=== PATIENT | female | born 1980 | race Caucasian/White ===

== ENCOUNTER 2021-03-03 18:01 | Observation (INO) ==
[2021-03-03 18:57] LABS: Pregnancy Test, Urine Negative (Negative)
[2021-03-03] MEDS ORDERED: traZODone HCL 50 MG TAB PO ONE ×2 (19:00→22:13)
[2021-03-03 19:03] LABS: Bacteria Urine Automated 1+ (Negative); Bilirubin Urine Negative (Negative); Blood Urine Trace (Negative); Color Urine Yellow; Epithelial Cell Urine Auto >30 /lpf (0-5); Glucose Urine UA Negative (Negative); Ketones Urine Negative (Negative); Leukocyte Esterase Urine 3+ (Negative); Nitrite Urine Negative (Negative); Protein Urine Negative (Negative); RBC Urine Automated 0-4 /hpf (0-4); Specific Gravity Urine 1.007 (1.000-1.030); Urobilinogen Urine Negative (Negative); pH Urine 6.5 (4.5-7.5)
[2021-03-03 19:17] LABS: Amphetamines+Metham, Urine Neg (Neg); Barbiturates, Urine Neg (Neg); Benzodiazepine, Urine Neg (Neg); Cocaine, Urine Neg (Neg); MDMA (Ecstacy), Urine Neg (Neg); Methadone, Urine Neg (Neg); Opiate, Urine Neg (Neg); Phencyclidine, Urine Neg (Neg)
[2021-03-03 19:21] LABS: Basophils # (auto) 0.04 K/uL (0-0.2); Basophils % (auto) 0.3 %; Eosinophils # (auto) 0.07 K/uL (0-0.5); Eosinophils % (auto) 0.5 %; Hematocrit (blood only) 46.3 % (37-47); Hemoglobin 16.4 g/dL (12.0-16.0); Immature Granulocytes # (auto) 0.03 K/uL (0.00-0.02); Immature Granulocytes % (auto) 0.2 %; Lymphocytes # (auto) 3.33 K/uL (1.2-3.4); Mean Corpuscular Hemoglobin 31.9 pg (25-34); Mean Corpuscular Hgb Conc 35.4 g/dL (32-36); Mean Corpuscular Volume 90.1 fL (80-100); Mean Platelet Volume 11.5 fL (7.4-10.4); Monocytes # (auto) 0.97 K/uL (0.11-0.59); Monocytes % (auto) 7.3 %; Neutrophils # (auto) 8.86 K/uL (1.4-6.5); Neutrophils % (auto) 66.7 %; Platelet Count 280 K/uL (130-400); RDW Coefficient of Variation 12.5 % (11.5-14.5); RDW Standard Deviation 41.2 fL (36.4-46.3); Red Blood Count 5.14 M/uL (4.2-5.4)
[2021-03-03 19:23] LABS: Appearance Urine Clear (Clear)
--- NOTE | 2021-03-03 19:32 | Emergency Department Note ---
Impression & Plan Mood disorder, Right upper quadrant abdominal pain, Leukocytosis, UTI (urinary tract infection) ED Provider Note INFORMANT: Patient and daughter ED PROVIDER(S): Kane Hays MD CHIEF COMPLAINT: Mental health evaluation PLAN: Disposition: Admitted Condition: Good Outpatient prescription management: none Referral: None MEDICAL DECISION MAKING: Patient presented for mental evaluation. She had what was described as a manic- like episode after leaving the [facility]. Her time there was reviewed and she was noted to have a significant leukocytosis. Their work-up did not reveal an obvious source for infection. Currently the patient denied any pain. She was dealing with right upper quadrant pain. A ultrasound of the gallbladder was performed and was unremarkable. Patient still has a mild leukocytosis present on her CBC. Her urinalysis was concerning for infection. Remainder of her blood work was unremarkable. The patient, her daughter, and I discussed inpatient treatment. She has a low potassium, high white count, and an abnormal urine. I discussed initiation of antibiotics and treatment for the potassium. In light of her symptoms and findings she will not be directly excepted for mental health evaluation at any facility. Medical admission here can also c onsult with psychiatry. Case management and I discussed the possibility and it was felt to be reasonable. I did discuss the case with Dr. Jose Alejandro Nation, [facility] hospitalist service. Patient was evaluated in ER admitted for further management. Triage Nursing notes reviewed and agree them. Vital Signs: reviewed and remarkable for hypertension Differential diagnosis: Mood disorder, cholecystitis, infection, hypoglycemia, electrolyte abnormal ities, cardiac sources, intracerebral event, toxicologic, trauma, neurologic, as well as other pathologies. Diagnostics interpreted by me: ECG: none Cardiac Monitoring: none Imaging studies: Gallbladder ultrasound negative. HPI: The patient is a 41 year old female who presents to the Emergency Room with complaints of mental health evaluation. The patient recently was held in the [facility] on a 302 because of psychotic-like features. She was also found to have a significant leukocytosis. She had a work-up obtained which did not reveal any obvious problems. CT scan was negative. Urine did not reveal obvious signs of infection. The patient did require restraint and sedation. She was seen by telepsych services. She reportedly improved per family's information that they were given from the hospital and the patient was discharged today. When she went home she was with her daughter and daughter notes that she started to have agitated behavior again. She took off her clothes and ran into the bathroom. She was repeatedly arranging items on the shelf. The patient was evaluated by 911 services however at the time she was calm and cooperative. They did not transport her. Family was concerned and brought her to the ER for evaluation. She was complaining of several weeks of right upper quadrant abdominal pain when she arrived at the [facility]. Currently she denies any pain. Patient did take her morning medications. Jennifer harper is due for an evening trazodone. pt denies LOC, headache, fevers, chills, diaphoresis, visual changes, neck pain, chest pain, breathing difficulties, nausea, vomiting, abdominal pain, back pain, melena, hematochezia, urinary symptoms, numbness, weakness, lymphadenopathy, rash, or other complaints. ROS: See above HPI for pertinent positives & negatives. A total of 10 systems reviewed and were otherwise negative. PAST MEDICAL HISTORY:See Below , anxiety, jeb PAST SURGICAL HISTORY:See Below, FAMILY HISTORY:See Below SOCIAL HISTORY:See Below, former smoker HOME MEDICATIONS:See Below ALLERGIES:See Below VITALS:See Below PHYSICAL EXAMINATION: GENERAL: Awake, alert, mildly agitated-appearing, in no distress HENT: Normocephalic, atraumatic. Oropharynx unremarkable. EYES: Normal conjunctiva. Sclera non-icteric. NECK: Inspection normal. Non-tender. Supple. No nuchal rigidity. FROM. No masses. RESPIRATORY: Clear to auscultation. No wheezes. No rales. Normal respiratory effort. CARDIAC: Normal rate. Normal rhythm. No murmurs. No rubs. Extremities warm and well perfused. Pulses equal. No JVD. GI: Soft, non-distended. No tenderness to palpation. No rebound or guarding. No masses. RECTAL: Deferred. MUSCULOSKELETAL: Atraumatic except for superficial bruises noted on the arms. Chest examination reveals no tenderness. The back is symmetrical on inspection without obvious abnormality. There is no CVA tenderness to palpation. No joint edema. LOWER EXTREMITIES: Calves are equal size bilaterally and non-tender. No edema. No discoloration. NEURO: Normal sensorium. No sensory or motor deficits noted. SKIN: No rash or jaundice noted. PSYCH: No SI or HI. The patient is quick to answer with yes and no answers. Does not provide details. Insight seems impaired. Kane Hays MD Past Med/Surg History Medical History (Updated 03/04/21 @ 02:50 by Kane Hays MD) Chronic migraine Gastritis Pharyngitis Social History Smoking Status: Never smoker Feels Safe at Home: Yes Allergies Allergies Allergy/AdvReac Type Severity Reaction Status Date / Time No Known Allergies Allergy Unverified 10/16/18 12:14 Home Meds Home Medications Medication Instructions Recorded Confirmed lamotrigine 100 mg tablet 100 mg PO QAM 10/16/18 03/03/21 sertraline 100 mg tablet 100 mg PO QAM 10/16/18 03/03/21 propranolol 10 mg tablet 10 mg PO DAILY 03/03/21 03/03/21 trazodone 50 mg tablet 50 mg PO DAILY 03/03/21 03/03/21 Results & Data (ED) Vital Signs Vital Signs - 24 hr 03/03/21 18:20 03/03/21 20:20 03/03/21 21:45 Temperature 36.9 C 36.7 C Temperature Source Temporal Artery Scan Oral Pulse Rate 72 Pulse Rate [Finger] 74 80 Respiratory Rate 19 18 18 Respiratory Effort / Characteristics Non-Labored Spontaneous Respiratory Depth Normal Respiratory Pattern Regular Blood Pressure 189/117 H Blood Pressure [Left Arm] 169/121 H 199/115 H Blood Pressure Mean 141 Blood Pressure Mean [Left Arm] 137 143 Pulse Oximetry 97 98 100 Oxygen Delivery Method Room Air Room Air Sepsis Recent Fever Within 48 Hours No Sepsis New/Unexplained Change in Mental Status N/A Sepsis Action Taken by Nursing No Action Required 03/03/21 22:05 Temperature Temperature Source Pulse Rate Pulse Rate [Finger] 70 Respiratory Rate 19 Respiratory Effort / Characteristics Respiratory Depth Normal Respiratory Pattern Blood Pressure Blood Pressure [Left Arm] 169/103 H Blood Pressure Mean Blood Pressure Mean [Left Arm] 125 Pulse Oximetry 98 Oxygen Delivery Method Sepsis Recent Fever Within 48 Hours Sepsis New/Unexplained Change in Mental Status Sepsis Action Taken by Nursing Laboratory Data Result diagrams: 03/03/21 19:03 03/03/21 19:03 Lab Results 03/03/21 03/03/21 03/03/21 Range/Units 18:37 18:37 18:37 WBC (4.8-10.8) K/uL RBC (4.2-5.4) M/uL Hgb (12.0-16.0) g/dL Hct (37-47) % MCV (80-100) fL MCH (25-34) pg MCHC (32-36) g/dL RDW Std Deviation (36.4-46.3) fL RDW Coeff of Jerry (11.5-14.5) % Plt Count (130-400) K/uL MPV (7.4-10.4) fL Immature Gran % (Auto) % Neut % (Auto) % Lymph % (Auto) % [place] % (Auto) % Eos % (Auto) % Baso % (Auto) % Neut # (Auto) (1.4-6.5) K/uL Lymph # (Auto) (1.2-3.4) K/uL [place] # (Auto) (0.11-0.59) K/uL Eos # (Auto) (0-0.5) K/uL Baso # (Auto) (0-0.2) K/uL Immature Gran # (Auto) (0.00-0.02) K/uL Sodium (136-145) mmol/L Potassium (3.5-5.1) mmol/L Chloride (98-107) mmol/L Carbon Dioxide (21-32) mmol/L Anion Gap (3-11) BUN (7-18) mg/dl Creatinine (0.6-1.2) mg/dl Est Cr Clr Drug Dosing ml/min Est GFR ( Amer) ml/min Est GFR (Non-Af Amer) ml/min BUN/Creatinine Ratio (10-20) Glucose (70-99) mg/dl Calcium (8.5-10.1) mg/dl Magnesium (1.8-2.4) mg/dl Total Bilirubin (0.2-1) mg/dl AST (15-37) U/L ALT (12-78) U/L Alkaline Phosphatase (45-117) U/L Total Creatine Kinase (26-192) U/L Total Protein (6.4-8.2) gm/dl Albumin (3.4-5.0) gm/dl Globulin (2.5-4.0) gm/dl Albumin/Globulin Ratio (0.9-2) TSH (0.300-4.500) uIu/ml Urine Color Yellow Urine Appearance Clear (Clear) Urine pH 6.5 (4.5-7.5) Ur Specific [place] 1.007 (1.000-1.030) Urine Protein Negative (Negative) Urine Glucose (UA) Negative (Negative) Urine Ketones Negative (Negative) Urine Blood Trace H (Negative) Urine Nitrite Negative (Negative) Urine Bilirubin Negative (Negative) Urine Urobilinogen Negative (Negative) Ur Leukocyte Esterase 3+ H (Negative) Urine WBC (Auto) 10-30 H (0-5) /hpf Urine RBC (Auto) 0-4 (0-4) /hpf U Hyaline Cast (Auto) 1-5 (0-5) /lpf U Epithel Cells (Auto) >30 H (0-5) /lpf Urine Bacteria (Auto) 1+ H (Negative) Urine Test Negative (Negative) Salicylates (2.8-20) mg/dl Urine Opiates Screen Neg (Neg) Ur Methadone, Qual Neg (Neg) Acetaminophen (10-30) ug/ml Urine Barbiturates Neg (Neg) Ur Phencyclidine (PCP) Neg (Neg) U Amphetamin/Meth Scrn Neg (Neg) MDMA (Ecstasy) Screen Neg (Neg) U Benzodiazepines Scrn Neg (Neg) Ur Cocaine Metabolite Neg (Neg) U Marijuana (THC) Screen Pos H (Neg) Ethyl Alcohol mg/dL (0-3) mg/dl SARS-CoV-2, RNA, NAAT (NEGATIVE) 03/03/21 03/03/21 03/03/21 Range/Units 19:00 19:03 19:03 WBC 13.30 H (4.8-10.8) K/uL RBC 5.14 (4.2-5.4) M/uL Hgb 16.4 H (12.0-16.0) g/dL Hct 46.3 (37-47) % MCV 90.1 (80-100) fL MCH 31.9 (25-34) pg MCHC 35.4 (32-36) g/dL RDW Std Deviation 41.2 (36.4-46.3) fL RDW Coeff of Jerry 12.5 (11.5-14.5) % Plt Count 280 (130-400) K/uL MPV 11.5 H (7.4-10.4) fL Immature Gran % (Auto) 0.2 % Neut % (Auto) 66.7 % Lymph % (Auto) 25.0 % [place] % (Auto) 7.3 % Eos % (Auto) 0.5 % Baso % (Auto) 0.3 % Neut # (Auto) 8.86 H (1.4-6.5) K/uL Lymph # (Auto) 3.33 (1.2-3.4) K/uL [place] # (Auto) 0.97 H (0.11-0.59) K/uL Eos # (Auto) 0.07 (0-0.5) K/uL Baso # (Auto) 0.04 (0-0.2) K/uL Immature Gran # (Auto) 0.03 H (0.00-0.02) K/uL Sodium 142 (136-145) mmol/L Potassium 3.0 L (3.5-5.1) mmol/L Chloride 109 H (98-107) mmol/L Carbon Dioxide 27 (21-32) mmol/L Anion Gap 6.0 (3-11) BUN 13 (7-18) mg/dl Creatinine 0.79 (0.6-1.2) mg/dl Est Cr Clr Drug Dosing 104.8 ml/min Est GFR ( Amer) 107.8 ml/min Est GFR (Non-Af Amer) 93.0 ml/min BUN/Creatinine Ratio 16.6 (10-20) Glucose 117 H (70-99) mg/dl Calcium 9.8 (8.5-10.1) mg/dl Magnesium (1.8-2.4) mg/dl Total Bilirubin 1.1 H (0.2-1) mg/dl AST 35 (15-37) U/L ALT 49 (12-78) U/L Alkaline Phosphatase 70 (45-117) U/L Total Creatine Kinase (26-192) U/L Total Protein 7.6 (6.4-8.2) gm/dl Albumin 4.2 (3.4-5.0) gm/dl Globulin 3.4 (2.5-4.0) gm/dl Albumin/Globulin Ratio 1.2 (0.9-2) TSH 1.470 (0.300-4.500) uIu/ml Urine Color Urine Appearance (Clear) Urine pH (4.5-7.5) Ur Specific [place] (1.000-1.030) Urine Protein (Negative) Urine Glucose (UA) (Negative) Urine Ketones (Negative) Urine Blood (Negative) Urine Nitrite (Negative) Urine Bilirubin (Negative) Urine Urobilinogen (Negative) Ur Leukocyte Esterase (Negative) Urine WBC (Auto) (0-5) /hpf Urine RBC (Auto) (0-4) /hpf U Hyaline Cast (Auto) (0-5) /lpf U Epithel Cells (Auto) (0-5) /lpf Urine Bacteria (Auto) (Negative) Urine Test (Negative) Salicylates (2.8-20) mg/dl Urine Opiates Screen (Neg) Ur Methadone, Qual (Neg) Acetaminophen (10-30) ug/ml Urine Barbiturates (Neg) Ur Phencyclidine (PCP) (Neg) U Amphetamin/Meth Scrn (Neg) MDMA (Ecstasy) Screen (Neg) U Benzodiazepines Scrn (Neg) Ur Cocaine Metabolite (Neg) U Marijuana (THC) Screen (Neg) Ethyl Alcohol mg/dL (0-3) mg/dl SARS-CoV-2, RNA, NAAT NEGATIVE (NEGATIVE) 03/03/21 03/03/21 03/03/21 Range/Units 19:03 19:03 19:03 WBC (4.8-10.8) K/uL RBC (4.2-5.4) M/uL Hgb (12.0-16.0) g/dL Hct (37-47) % MCV (80-100) fL MCH (25-34) pg MCHC (32-36) g/dL RDW Std Deviation (36.4-46.3) fL RDW Coeff of Jerry (11.5-14.5) % Plt Count (130-400) K/uL MPV (7.4-10.4) fL Immature Gran % (Auto) % Neut % (Auto) % Lymph % (Auto) % [place] % (Auto) % Eos % (Auto) % Baso % (Auto) % Neut # (Auto) (1.4-6.5) K/uL Lymph # (Auto) (1.2-3.4) K/uL [place] # (Auto) (0.11-0.59) K/uL Eos # (Auto) (0-0.5) K/uL Baso # (Auto) (0-0.2) K/uL Immature Gran # (Auto) (0.00-0.02) K/uL Sodium (136-145) mmol/L Potassium (3.5-5.1) mmol/L Chloride (98-107) mmol/L Carbon Dioxide (21-32) mmol/L Anion Gap (3-11) BUN (7-18) mg/dl Creatinine (0.6-1.2) mg/dl Est Cr Clr Drug Dosing ml/min Est GFR ( Amer) ml/min Est GFR (Non-Af Amer) ml/min BUN/Creatinine Ratio (10-20) Glucose (70-99) mg/dl Calcium (8.5-10.1) mg/dl Magnesium 2.3 (1.8-2.4) mg/dl Total Bilirubin (0.2-1) mg/dl AST (15-37) U/L ALT (12-78) U/L Alkaline Phosphatase (45-117) U/L Total Creatine Kinase (26-192) U/L Total Protein (6.4-8.2) gm/dl Albumin (3.4-5.0) gm/dl Globulin (2.5-4.0) gm/dl Albumin/Globulin Ratio (0.9-2) TSH (0.300-4.500) uIu/ml Urine Color Urine Appearance (Clear) Urine pH (4.5-7.5) Ur Specific [place] (1.000-1.030) Urine Protein (Negative) Urine Glucose (UA) (Negative) Urine Ketones (Negative) Urine Blood (Negative) Urine Nitrite (Negative) Urine Bilirubin (Negative) Urine Urobilinogen (Negative) Ur Leukocyte Esterase (Negative) Urine WBC (Auto) (0-5) /hpf Urine RBC (Auto) (0-4) /hpf U Hyaline Cast (Auto) (0-5) /lpf U Epithel Cells (Auto) (0-5) /lpf Urine Bacteria (Auto) (Negative) Urine Test (Negative) Salicylates 2.1 L (2.8-20) mg/dl Urine Opiates Screen (Neg) Ur Methadone, Qual (Neg) Acetaminophen < 2 L (10-30) ug/ml Urine Barbiturates (Neg) Ur Phencyclidine (PCP) (Neg) U Amphetamin/Meth Scrn (Neg) MDMA (Ecstasy) Screen (Neg) U Benzodiazepines Scrn (Neg) Ur Cocaine Metabolite (Neg) U Marijuana (THC) Screen (Neg) Ethyl Alcohol mg/dL < 3.0 (0-3) mg/dl SARS-CoV-2, RNA, NAAT (NEGATIVE) 03/03/21 Range/Units 19:03 WBC (4.8-10.8) K/uL RBC (4.2-5.4) M/uL Hgb (12.0-16.0) g/dL Hct (37-47) % MCV (80-100) fL MCH (25-34) pg MCHC (32-36) g/dL RDW Std Deviation (36.4-46.3) fL RDW Coeff of Jerry (11.5-14.5) % Plt Count (130-400) K/uL MPV (7.4-10.4) fL Immature Gran % (Auto) % Neut % (Auto) % Lymph % (Auto) % [place] % (Auto) % Eos % (Auto) % Baso % (Auto) % Neut # (Auto) (1.4-6.5) K/uL Lymph # (Auto) (1.2-3.4) K/uL [place] # (Auto) (0.11-0.59) K/uL Eos # (Auto) (0-0.5) K/uL Baso # (Auto) (0-0.2) K/uL Immature Gran # (Auto) (0.00-0.02) K/uL Sodium (136-145) mmol/L Potassium (3.5-5.1) mmol/L Chloride (98-107) mmol/L Carbon Dioxide (21-32) mmol/L Anion Gap (3-11) BUN (7-18) mg/dl Creatinine (0.6-1.2) mg/dl Est Cr Clr Drug Dosing ml/min Est GFR ( Amer) ml/min Est GFR (Non-Af Amer) ml/min BUN/Creatinine Ratio (10-20) Glucose (70-99) mg/dl Calcium (8.5-10.1) mg/dl Magnesium (1.8-2.4) mg/dl Total Bilirubin (0.2-1) mg/dl AST (15-37) U/L ALT (12-78) U/L Alkaline Phosphatase (45-117) U/L Total Creatine Kinase 963 H (26-192) U/L Total Protein (6.4-8.2) gm/dl Albumin (3.4-5.0) gm/dl Globulin (2.5-4.0) gm/dl Albumin/Globulin Ratio (0.9-2) TSH (0.300-4.500) uIu/ml Urine Color Urine Appearance (Clear) Urine pH (4.5-7.5) Ur Specific [place] (1.000-1.030) Urine Protein (Negative) Urine Glucose (UA) (Negative) Urine Ketones (Negative) Urine Blood (Negative) Urine Nitrite (Negative) Urine Bilirubin (Negative) Urine Urobilinogen (Negative) Ur Leukocyte Esterase (Negative) Urine WBC (Auto) (0-5) /hpf Urine RBC (Auto) (0-4) /hpf U Hyaline Cast (Auto) (0-5) /lpf U Epithel Cells (Auto) (0-5) /lpf Urine Bacteria (Auto) (Negative) Urine Test (Negative) Salicylates (2.8-20) mg/dl Urine Opiates Screen (Neg) Ur Methadone, Qual (Neg) Acetaminophen (10-30) ug/ml Urine Barbiturates (Neg) Ur Phencyclidine (PCP) (Neg) U Amphetamin/Meth Scrn (Neg) MDMA (Ecstasy) Screen (Neg) U Benzodiazepines Scrn (Neg) Ur Cocaine Metabolite (Neg) U Marijuana (THC) Screen (Neg) Ethyl Alcohol mg/dL (0-3) mg/dl SARS-CoV-2, RNA, NAAT (NEGATIVE) Administered Medications Potassium Chloride 40 meq/ (Lactated Ringer's) 1,020 mls @ 75 mls/hr IV .[id number] ONE Stop: 03/04/21 12:35 Last Admin: 03/03/21 23:29 Dose: Not Given Documented by: [id number] Discontinued Medications Ceftriaxone Sodium (Rocephin) 2,000 mg in 70 mls @ 140 mls/hr IV NOW STA Stop: 03/03/21 20:38 Last Infusion: 03/03/21 20:47 Dose: 0 mls/hr Documented by: [id number] Admin: 03/03/21 20:17 Dose: 140 mls/hr Documented by: [id number] Labetalol HCl (Labetalol Hcl Iv 5 Mg/Ml 20ml) 10 mg IV NOW STA Stop: 03/03/21 21:47 Last Admin: 03/03/21 22:04 Dose: Not Given Documented by: [id number] Labetalol HCl (Labetalol Hcl Iv 5 Mg/Ml 20ml) Confirm Administered Dose 10 mg IV .STK-MED ONE Stop: 03/03/21 21:50 Last Admin: 03/03/21 21:52 Dose: 10 mg Documented by: [id number] Cosigned by: [id number] Lisinopril (Lisinopril 5 Mg Tab) 5 mg PO NOW ONE Stop: 03/03/21 22:14 Last Admin: 03/03/21 23:11 Dose: Not Given Documented by: [id number] Metoprolol Tartrate (Metoprolol Tartrate 1 Mg/Ml Vial) 2.5 mg IV NOW STA Stop: 03/03/21 20:55 Last Admin: 03/03/21 21:34 Dose: Not Given Documented by: [id number] Potassium Chloride (Potassium Chloride Crtab 20 Meq Tabcr) 40 meq PO NOW STA Stop: 03/03/21 20:10 Last Admin: 03/03/21 20:17 Dose: 40 meq Documented by: [id number] Potassium Chloride (Potassium Chloride Crtab 20 Meq Tabcr) 40 meq PO NOW STA Stop: 03/03/21 20:55 Last Admin: 03/03/21 21:33 Dose: 40 meq Documented by: [id number] Trazodone HCl (Trazodone Hcl 50 Mg Tab) 50 mg PO NOW ONE Stop: 03/03/21 19:01 Last Admin: 03/03/21 19:29 Dose: Not Given Documented by: [id number] Trazodone HCl (Trazodone Hcl 50 Mg Tab) 50 mg PO NOW ONE Stop: 03/03/21 22:14 Last Admin: 03/03/21 22:10 Dose: 50 mg Documented by: [id number] Imaging Data Radiologist's Impression: Gallbladder Ultrasound 03/03/21 18:58 US gallbladder CLINICAL HISTORY: RUQ pain, AMS, recent high WBC COMPARISON STUDY: No previous studies for comparison. FINDINGS: Liver is sonographically normal. There is no biliary ductal dilatation. The common bile duct measures 5 mm in caliber. The pancreatic body is normal. Head and tail are partially obscured. The gallbladder is unremarkable. There are no gallstones. There is no gallbladder wall thickening. There is no right hydronephrosis. IMPRESSION: 1. No abnormality within the right upper quadrant by sonography. 2. Partially obscured pancreas. ACT 112: Negative or not required by law. Electronically signed by: Gio Menchaca M.D. 03/03/2021 7:37 PM Discharge Plan Visit Data Chief Complaint: Mental Health Evaluation Stated Complaint: E ED Provider: Kane Hays Discharge Problem: Mood disorder, Right upper quadrant abdominal pain, Leukocytosis, UTI (urinary tract infection) Patient Disposition: Admitted As Inpatient Discharge Instructions Interventions: ED Discharge Assessment Last Done: 03/03/21 23:31
--- NOTE | 2021-03-03 19:38 | Ultrasound Report ---
US gallbladder CLINICAL HISTORY: RUQ pain, AMS, recent high WBC COMPARISON STUDY: No previous studies for comparison. FINDINGS: Liver is sonographically normal. There is no biliary ductal dilatation. The common bile edgar t measures 5 mm in caliber. The pancreatic body is normal. Head and tail are partially obscured. The gallbladder is unremarkable. There are no gallstones. There is no gallbladder wall thickening. There is no right hydronephrosis. IMPRESSION: 1. No abnormality within the right upper quadrant by sonography. 2. Partially obscured pancreas. ACT 112: Negative or not required by law. Electronically signed by: Gio Menchaca M.D. 03/03/2021 7:37 PM
[2021-03-03 19:41] LABS: Albumin Level 4.2 gm/dl (3.4-5.0); BUN Creatinine Ratio 16.6 (10-20); Calcium 9.8 mg/dl (8.5-10.1); Creatinine Clr Calc Pharmacy 104.8 ml/min; Est GFR (African American) 107.8 ml/min
[2021-03-03 19:46] LABS: Acetaminophen < 2 ug/ml (10-30); Salicylate 2.1 mg/dl (2.8-20)
[2021-03-03 19:52] LABS: Albumin Globulin Ratio 1.2 (0.9-2); Bilirubin,Total 1.1 mg/dl (0.2-1); Globulin 3.4 gm/dl (2.5-4.0); Thyroid Stimulating Hormone 1.47 uIu/ml (0.300-4.500); Total Protein 7.6 gm/dl (6.4-8.2)
[2021-03-03] MEDS ORDERED: cefTRIAXone SODIUM 2,000 MG/70 ML BAG IV STA (20:09)
[2021-03-03] MEDS ORDERED: POTASSIUM CHLORIDE CRTAB 20 MEQ TABCR PO STA ×2 (20:09→20:54)
[2021-03-03] MEDS ORDERED: METOPROLOL TARTRATE 1 MG/ML VIAL IV STA (20:54)
[2021-03-03] MEDS ORDERED: LABETALOL HCL IV 5 MG/ML 20ML IV STA (21:46)
[2021-03-03] MEDS ORDERED: LABETALOL HCL IV 5 MG/ML 20ML IV ONE (21:49)
--- NOTE | 2021-03-03 22:00 | History & Physical Report ---
Date of Service March 03, 2021 Assessment & Plan (1) Asymptomatic hypertensive urgency: Plan: BP elevated in the past as per patient. No prior documentation of hypertension diagnosis. Home propranolol for migraine prophylaxis. Rhabdomyolysis Hypokalemia Asymptomatic pyuria, contaminated specimen, no sepsis Urine CS obtained from [facility] ER no growth Mood disorder with psychotic episodes Hyperglycemia rule out DM Past tobacco/alcohol abuse Med telemetry Initiate lisinopril Monitor CPK response to IVF Replace potassium Follow urine CS, hold off on antibiotics for now Zyprexa as needed agitation, hold sertraline and Lamictal as per [facility] psychiatry recommendations for now. Psych consult Re: Mood disorder with psychotic episodes Check hemoglobin A1c DVT prophylaxis. Lovenox subcu Full code Patient daughter requesting updates from providers. Ms. Dana Snowden, contact #[phone]. Text document was generated using [employer] recognition software. It may contain grammatical or spelling errors. Kindly contact undersigned for clarification of any documentation item in question. History of Present Illness Chief Complaint: Wanted to get checked out as per patient Manic episode as per daughter Primary Care Provider: Dr. Petty History obtained from patient, family, and records. Patient is a fair historian. Medical history significant for anxiety/mood disorder, fibromyalgia, migraine, past tobacco/alcohol abuse. Patient observed at [facility] ER from February 27 to March 03, 2021 for agitation/paranoia/restorationism hallucinations, abdominal pain without urinary symptoms. History of Ritalin Rx which patient stopped days prior to [facility] ER consultation secondary to overstimulation. Abdominal imaging negative. Initial CPK noted to be elevated 1152. UA WBC esterase, nitrite positive. Urine CS no significant growth. No antibiotics given during ER stay. Psychiatry recommended inpatient psych admission once with medical clearance for abdominal pain complaints on initial evaluation at the [facility] ER last February 27. 302 petition by patient's mother was to be upheld. Patient not suicidal as per note. Psychiatry recommended holding off on patient's Zoloft given manic-like symptoms and patient's Lamictal given questionable compliance with medication. Zyprexa 5 mg p.o. at bedtime recommended. Patient found to be calm, coherent and to have good behavior control on follow- up Psychiatry eval at [facility] ER this a.m in contrast to acute psychosis from few days ago as per documentation. Patient felt to be safe for discharge. 302 canceled. Patient instructed to follow-up with her psychiatry provider. Patient found to be agitated and manic again as per daughter upon return home. Patient denies family accounts of her behavior. No chest pain, no shortness of breath, no headache, no abdominal pain, no dysuria. Appetite okay. Patient denies suicidality. Patient given ceftriaxone at the ER for possible UTI. Medical History as above Surgical History : None Family History : Hypertension Personal/Social history : Past tobacco/alcohol abuse, marketing analyst Allergies Allergy/AdvReac Type Severity Reaction Status Date / Time No Known Allergies Allergy Unverified 10/16/18 12:14 Home Medications Medication Instructions Recorded Confirmed Type lamotrigine 100 mg tablet 100 mg PO QAM 10/16/18 03/03/21 History sertraline 100 mg tablet 100 mg PO QAM 10/16/18 03/03/21 History propranolol 10 mg tablet 10 mg PO DAILY 03/03/21 03/03/21 History trazodone 50 mg tablet 50 mg PO DAILY 03/03/21 03/03/21 History Past Med/Surg History Medical History (Updated 03/04/21 @ 11:24 by Elza Norman MD) Chronic migraine Gastritis Pharyngitis Social History Smoking Status: Never smoker Feels Safe at Home: Yes Review of Systems Review of Systems: As per HPI, all 10 systems reviewed, all other ROS negative Physical Exam Physical Exam: GENERAL: Paranoid but coherent, obese, no respiratory distress SKIN: Normal color, warm HEENT: [place] palpebral conjunctivae, no ptosis, dry buccal mucosa NECK : Supple, no tenderness CHEST : CTA, no tenderness HEART : RRR, no obvious murmurs ABDOMEN: no distention, nontender EXTREMITIES : No LE swelling/tenderness, no other conspicuous deformities noted NEUROLOGIC : Coherent, no facial asymmetry, no other gross focality Results & Data Results & Data ([facility]) Vital Signs (Past 12 Hours) Vital Signs Temp Pulse Pulse Resp BP BP Pulse Ox 03/03/21 21:45 80 18 199/115 H 100 03/03/21 20:20 36.7 C 74 18 169/121 H 98 03/03/21 18:20 36.9 C 72 19 189/117 H 97 Laboratory Results Laboratory Results WBC 13.30 K/uL (4.8-10.8) H 03/03/21 19:03 RBC 5.14 M/uL (4.2-5.4) 03/03/21 19:03 Hgb 16.4 g/dL (12.0-16.0) H 03/03/21 19:03 Hct 46.3 % (37-47) 03/03/21 19:03 MCV 90.1 fL (80-100) 03/03/21 19:03 MCH 31.9 pg (25-34) 03/03/21 19:03 MCHC 35.4 g/dL (32-36) 03/03/21 19:03 RDW Std Deviation 41.2 fL (36.4-46.3) 03/03/21 19:03 RDW Coeff of Jerry 12.5 % (11.5-14.5) 03/03/21 19:03 Plt Count 280 K/uL (130-400) 03/03/21 19:03 MPV 11.5 fL (7.4-10.4) H 03/03/21 19:03 Immature Gran % (Auto) 0.2 % 03/03/21 19:03 Neut % (Auto) 66.7 % 03/03/21 19:03 Lymph % (Auto) 25.0 % 03/03/21 19:03 [place] % (Auto) 7.3 % 03/03/21 19:03 Eos % (Auto) 0.5 % 03/03/21 19:03 Baso % (Auto) 0.3 % 03/03/21 19:03 Neut # (Auto) 8.86 K/uL (1.4-6.5) H 03/03/21 19:03 Lymph # (Auto) 3.33 K/uL (1.2-3.4) 03/03/21 19:03 [place] # (Auto) 0.97 K/uL (0.11-0.59) H 03/03/21 19:03 Eos # (Auto) 0.07 K/uL (0-0.5) 03/03/21 19:03 Baso # (Auto) 0.04 K/uL (0-0.2) 03/03/21 19:03 Immature Gran # (Auto) 0.03 K/uL (0.00-0.02) H 03/03/21 19:03 Sodium 142 mmol/L (136-145) 03/03/21 19:03 Potassium 3.0 mmol/L (3.5-5.1) L 03/03/21 19:03 Chloride 109 mmol/L (98-107) H 03/03/21 19:03 Carbon Dioxide 27 mmol/L (21-32) 03/03/21 19:03 Anion Gap 6.0 (3-11) 03/03/21 19:03 BUN 13 mg/dl (7-18) 03/03/21 19:03 Creatinine 0.79 mg/dl (0.6-1.2) 03/03/21 19:03 Est Cr Clr Drug Dosing 104.8 ml/min 03/03/21 19:03 Est GFR ( Amer) 107.8 ml/min 03/03/21 19:03 Est GFR (Non-Af Amer) 93.0 ml/min 03/03/21 19:03 BUN/Creatinine Ratio 16.6 (10-20) 03/03/21 19:03 Glucose 117 mg/dl (70-99) H 03/03/21 19:03 Calcium 9.8 mg/dl (8.5-10.1) 03/03/21 19:03 Magnesium 2.3 mg/dl (1.8-2.4) 03/03/21 19:03 Total Bilirubin 1.1 mg/dl (0.2-1) H 03/03/21 19:03 AST 35 U/L (15-37) 03/03/21 19:03 ALT 49 U/L (12-78) 03/03/21 19:03 Alkaline Phosphatase 70 U/L (45-117) 03/03/21 19:03 Total Creatine Kinase 963 U/L (26-192) H 03/03/21 19:03 Total Protein 7.6 gm/dl (6.4-8.2) 03/03/21 19:03 Albumin 4.2 gm/dl (3.4-5.0) 03/03/21 19:03 Globulin 3.4 gm/dl (2.5-4.0) 03/03/21 19:03 Albumin/Globulin Ratio 1.2 (0.9-2) 03/03/21 19:03 TSH 1.470 uIu/ml (0.300-4.500) 03/03/21 19:03 Urine Color Yellow 03/03/21 18:37 Urine Appearance Clear (Clear) 03/03/21 18:37 Urine pH 6.5 (4.5-7.5) 03/03/21 18:37 Ur Specific [place] 1.007 (1.000-1.030) 03/03/21 18:37 Urine Protein Negative (Negative) 03/03/21 18:37 Urine Glucose (UA) Negative (Negative) 03/03/21 18:37 Urine Ketones Negative (Negative) 03/03/21 18:37 Urine Blood Trace (Negative) H 03/03/21 18:37 Urine Nitrite Negative (Negative) 03/03/21 18:37 Urine Bilirubin Negative (Negative) 03/03/21 18:37 Urine Urobilinogen Negative (Negative) 03/03/21 18:37 Ur Leukocyte Esterase 3+ (Negative) H 03/03/21 18:37 Urine WBC (Auto) 10-30 /hpf (0-5) H 03/03/21 18:37 Urine RBC (Auto) 0-4 /hpf (0-4) 03/03/21 18:37 U Hyaline Cast (Auto) 1-5 /lpf (0-5) 03/03/21 18:37 U Epithel Cells (Auto) >30 /lpf (0-5) H 03/03/21 18:37 Urine Bacteria (Auto) 1+ (Negative) H 03/03/21 18:37 Urine Test Negative (Negative) 03/03/21 18:37 Salicylates 2.1 mg/dl (2.8-20) L 03/03/21 19:03 Urine Opiates Screen Neg (Neg) 03/03/21 18:37 Ur Methadone, Qual Neg (Neg) 03/03/21 18:37 Acetaminophen < 2 ug/ml (10-30) L 03/03/21 19:03 Urine Barbiturates Neg (Neg) 03/03/21 18:37 Ur Phencyclidine (PCP) Neg (Neg) 03/03/21 18:37 U Amphetamin/Meth Scrn Neg (Neg) 03/03/21 18:37 MDMA (Ecstasy) Screen Neg (Neg) 03/03/21 18:37 U Benzodiazepines Scrn Neg (Neg) 03/03/21 18:37 Ur Cocaine Metabolite Neg (Neg) 03/03/21 18:37 U Marijuana (THC) Screen Pos (Neg) H 03/03/21 18:37 Ethyl Alcohol mg/dL < 3.0 mg/dl (0-3) 03/03/21 19:03 SARS-CoV-2, RNA, NAAT NEGATIVE (NEGATIVE) 03/03/21 19:00 Impressions Gallbladder Ultrasound 03/03/21 18:58 US gallbladder CLINICAL HISTORY: RUQ pain, AMS, recent high WBC COMPARISON STUDY: No previous studies for comparison. FINDINGS: Liver is sonographically normal. There is no biliary ductal dilatatio n. The common bile duct measures 5 mm in caliber. The pancreatic body is normal. Head and tail are partially obscured. The gallbladder is unremarkable. There are no gallstones. There is no gallbladder wall thickening. There is no right hydronephrosis. IMPRESSION: 1. No abnormality within the right upper quadrant by sonography. 2. Partially obscured pancreas. ACT 112: Negative or not required by law. Electronically signed by: Gio Menchaca M.D. 03/03/2021 7:37 PM
[2021-03-03] MEDS ORDERED: lisinopril 5 MG TAB PO ONE (22:13)
[2021-03-03] MEDS ORDERED: POTASSIUM CHLORIDE 40 MEQ in LACTATED RINGER'S 1,000 ML IV ONE (23:00)
[2021-03-04] MEDS ORDERED: OLANZapine 10 MG/2.1 ML SDV IM PRN (01:32)
[2021-03-04] MEDS ORDERED: ACETAMINOPHEN 325 MG TAB PO PRN (01:32)
[2021-03-04] MEDS ORDERED: PROMETHAZINE HCL 12.5 MG in SODIUM CHLORIDE 0.9% 50 ML IV PRN (01:32)
[2021-03-04 06:12] LABS: Basophils # (auto) 0.02 K/uL (0-0.2); Basophils % (auto) 0.2 %; Eosinophils % (auto) 0.8 %; Hematocrit (blood only) 42.9 % (37-47); Hemoglobin 14.8 g/dL (12.0-16.0); Immature Granulocytes # (auto) 0.02 K/uL (0.00-0.02); Immature Granulocytes % (auto) 0.2 %; Lymphocytes # (auto) 3.67 K/uL (1.2-3.4); Lymphocytes % (auto) 30.7 %; Mean Corpuscular Hemoglobin 31.4 pg (25-34); Mean Corpuscular Hgb Conc 34.5 g/dL (32-36); Mean Corpuscular Volume 90.9 fL (80-100); Mean Platelet Volume 11.5 fL (7.4-10.4); Monocytes # (auto) 0.96 K/uL (0.11-0.59); Neutrophils # (auto) 7.19 K/uL (1.4-6.5); Neutrophils % (auto) 60.1 %; Platelet Count 247 K/uL (130-400); RDW Coefficient of Variation 12.5 % (11.5-14.5); RDW Standard Deviation 41.8 fL (36.4-46.3); Red Blood Count 4.72 M/uL (4.2-5.4); White Blood Count 11.96 K/uL (4.8-10.8)
[2021-03-04 07:18] LABS: BUN Creatinine Ratio 22.1 (10-20); Calcium 9.4 mg/dl (8.5-10.1); Creatinine Clr Calc Pharmacy 129.3 ml/min; Est GFR (African American) 128.5 ml/min; Est GFR (Non-African American) 110.8 ml/min; Potassium 3.6 mmol/L (3.5-5.1)
--- NOTE | 2021-03-04 07:23 | XRay Report ---
XR chest 1V portable HISTORY: Hypertensive urgency. COMPARISON: None. FINDINGS: The lungs are clear. Cardiac silhouette is normal in size. No pleural effusions. No pneumot horax. IMPRESSION: No acute process. ACT 112: Negative or not required by law. Electronically signed by: Kilo Mckeon M.D. 03/04/2021 7:21 AM
[2021-03-04 07:43] LABS: Estimated Average Glucose 105 mg/dl; Hemoglobin A1C 5.3 % (4.5-5.6)
[2021-03-04] MEDS: PROPRANOLOL HCL 10 MG TAB PO SCH (08:35)
[2021-03-04] MEDS: ENOXAPARIN INJ 40 MG/0.4 ML SYR SQ SCH (08:35)
[2021-03-04] MEDS ORDERED: lisinopril 5 MG TAB PO SCH (09:00)
[2021-03-04] MEDS ORDERED: lamoTRIgine 100 MG TAB PO SCH (09:00)
[2021-03-04] MEDS ORDERED: SERTRALINE HCL 100 MG TABLET PO SCH (09:00)
[2021-03-04] MEDS ORDERED: cloNIDine HCL 0.1 MG TAB PO ONE (11:18)
--- NOTE | 2021-03-04 11:24 | Psychiatric Consultation ---
Date of Consultation March 04, 2021 Impression / Recommendations Impression The patient is a 41 year old woman with a history of BPAD who was recently boarding on a 302 status for acute jeb and after discharge from a local ED continued to exhibit bizarre behaviors, psychomotor activation, mood lability, aggression, poor sleep and paranoia consistent with acute episode of jeb. Given lab abnormalities and severe HTN hyperactive delirium is on the differential but very unlikely given her age, fully oriented, and known history of BPAD. Rather suspect acute jeb lead to decreased po intake, poor sleep and reduced attention to ADLs leading to medical sequelae. 302 petition was done by patient's daughter and agree that at this time she should not be allowed to leave the hospital, and once medically cleared may require inpatient psychiatric treatment, given lack of self care and risk of harm to others given recent poor self-care and aggression from acute jeb. Holding zoloft given that she has no current mood stabilizer and it will take some time to re-titrate lamictal. She voices understanding and consent with this. Also discussed mood stabilizer options and she likes lamictal and is not interested in anything else so will restart titration (unfortunately lamictal is not helpful for acute jeb but can help provide mood stabilization once this is treated and help reduce risk of subsequent depressive episode). Will restart olanzapine for management of acute jeb. She consents to this discussed risks including but not limited to TD, metabolic, sedation. (1) Bipolar 1 disorder with moderate jeb: -olanzapine 2.5 mg qAM & 10 mg qHS -restart lamictal 25 mg qd tomorrow -holding zoloft -for behavioral emergency: olanzapine 10 mg IM x1 -agree with optimizing treatment of medical conditions -once on medical floor consider 1-on-1 given potential for agitation/elopement -patient may not leave AMA or without psych clearance (302 petition from daughter) -psych will continue to follow Risk Factors Assessment Do You Have Access To A Gun?: No Mental Health Diagnoses: Yes Previous Attempt: No Hopelessness: No Protective Factors Assessment Stable Relationships: Yes Supportive Family: Yes Good Rapport with Provider: Yes Psych History Identifying Data Radha Snowden is a 41 yo woman with a history of BPAD who presented to the ED via EMS after bizarre behaviors and then with concern for UTI, possible rhabdomyolysis, hypokalemia and severe HTN. Psychiatry was consulted for management recommendations given history of jeb. Chief Complaint "I'm fine". History of Present Illness Radha is 41 yo woman with a history of BPAD, on maintenance lamictal and zoloft, with recent behavioral health ED hold on 302 warrant at [facility] for suspected jeb from 02/27-03/03. When the warrant she was demonstrating some clinical improvement as they held her lamictal and zoloft and started olanzapine 5 mg qhs. However, after discharge she returned home and was demonstrated bizarre behavior (stripping off her clothes in front of her son-in-law) and increase in psychomotor activation (pulling items off of shelves and hyperfocus on moving around items) and then became aggressive toward her daughter at which point EMS was called and she presented to the ED. Here she was found to have multiple lab abnormalities, severe HTN and concern for possible rhabdomyolysis necessitating medical admission. Currently she presents with normal rate and volume of speech but is guarded offering brief, terse responses to my questions. She endorses history of BPAD with past episodes of jeb. Has been stable on lamictal 100 mg qd and zoloft 100 mg qd for many years. She reports that when she goes into episodes of jeb with little sleep she manages them with "yoga and meditation". One prior psych hospitalization many years ago. She denies SI and HI. She denies Ah and VH but appears to be responding to internal stimuli and appears paranoid-scanning the room and looking intensely in the corners at times. Distracted. She agrees with plan to hold zoloft, restart lamictal titration and start olanzapine BID. She reports poor sleep prior to [facility] ED visit but reports stable sleep and appetite now. Denies any pain. Notably she ripped out her IV this morning and intermittently has been refusing medical workup such as blood draws. This morning allowed blood draw and took her medications. Further collateral from psych liason nurse from her note on 03/04/21 including collateral from patient's daughter as described briefly in history above: "Met with patient for initial assessment. Patient was cooperative and fairly pleasant. She appeared to be distracted and had occasional difficulty answering questions. She only spoke when spoken too and did not offer additional information aside from short responses. She verbalized that she has a history of bipolar disorder with jeb as well as depression and anxiety. Currently denies any symptoms of depression or anxiety. When asked what brought her to the ED she shrugged her shoulders and did not provide an answer. She has had decreased sleep over the past few weeks and "eats when I'm hungry". She reported a 50lb weight loss over the past three months. The patient is seen at [facility] for psychiatry as well as therapy. For therapy she sees BARBARA Franklin. She had a slight edge to her during the interaction but maintained behavioral control. Patient said she is willing for inpatient psychiatric treatment if indicated by the provider. She did not provide much information to this RN. Patient did sign ROIs for her daughter and [facility]." "Spoke with daughter, Hafsa, for collateral. Per daughter, 3-[address] Simpson prescribed patient Adderall and then changed it to Ritalin. The patient has been exhibiting manic behaviors since then that have been increasing in severity. The patient has had frequent mood swings as well as irritability and aggression towards her family members. She has been very preoccupied with her persecutory delusions. She has recently been convinced that a sniper would shoot her if she were to go outside and that her family is trying to kill her. The patient has also been experiencing spiritual delusions. She believes she is psychic and can read other people's minds. The patient has also been telling her family that she is the reincarnation of her grandmother. Recently the patient was awake during the middle of the night and drove herself to [facility] to "fight the devil". She has also believed that she was abducted by aliens. This past Sunday her behaviors began to worsen further. By this point in time she was staying with family because they wanted to monitor her behaviors. She has not been sleeping for the past two weeks due to worry she would in her sleep. She has not been eating either. Patient told daughter that she doesn't want to eat and the only things the patient would eat is baby cereal, jello, and yogurt. On Sunday the patient went to [place] ED after her family asked her to get help with her mental health. While in the ED she attempted to elope so she was placed on a 302 of which her mother was the petitioner. She was in the ED for 3 days due to no bed placement. During this time she was chemically and physically restrained at least 2 times. Family felt her condition was the same but patient was discharged AM. Her daughter picked her up from ED and when the patient entered the car she stated "I know you were all trying to kill me and it didn't work". When the patient arrived to daughter's house she was acting bizarrely. She was referring to herself as "she" and would make statements such as "she is not here anymore". Patient began smacking her dog and became increasingly aggressive throughout the day. Patient was responding to internal stimuli by yelling at unseen people to "get away". Patient stripped her clothes in front of family including daughter, her daughter's , and sister. Patient then went into the bathroom and began organizing bathroom toiletries repeatedly. The police were then called to the home and first dyer arrived. Ultimately the patient's family decided to bring the patient to this ED so she would not be transported to [place] again via first dyer. The patient's daughter and family are very concerned for the patient's wellbeing. They are worried for her safety is she were to be discharged. Per her daughter, the patient is "extremely good at manipulating healthcare staff". Daughter reported that the patient will often lie to health care workers to get what she wants. She said the patient has never attempted to hurt herself. She has a history of bipolar with jeb, depression, and anxiety. In the past , the patient has experienced some events that she considers to be traumatic. Hafsa reported that the patient did not have a good relationship with her father and would have frequent family discord due to the father's cheating. The patient also feels her sister was the favorite child and has trouble processing these feelings. Patient's and she got due to patient's mental health issues when daughter was 12 years old. Ex- is involved and supportive of patient despite this. Patient is typically very private about her mental health treatment. Hafsa verbalized that they have a strong family history of bipolar disorder and anxiety disorders. Patient's grandmother had bipolar disorder and often had manic episodes with frequent inpatient admissions. Some other family members are diagnosed with bipolar disorder. 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 Hafsa doesn't know much detail about the patient's job duties because the patient says she is not allowed to elaborate. The patient has always held jobs and has a master's in adult education through [employer]." Past Psychiatric History Previous Psych History: see [facility] Outpatient Services: psychiatrist and therapist Previous Psych Admissions: 1 prior but she cannot give specific date Do You Have Access To A Gun?: No History of Previous Suicide Attempt: No Past Medication Trials: recently on ritalin and then Adderall which may have set off current episode of jeb Allergies Allergy/AdvReac Type Severity Reaction Status Date / Time No Known Allergies Allergy Unverified 10/16/18 12:14 Home Medications Medication Instructions Recorded Confirmed Type lamotrigine 100 mg tablet 100 mg PO QAM 10/16/18 03/03/21 History sertraline 100 mg tablet 100 mg PO QAM 10/16/18 03/03/21 History propranolol 10 mg tablet 10 mg PO DAILY 03/03/21 03/03/21 History trazodone 50 mg tablet 50 mg PO DAILY 03/03/21 03/03/21 History Family History BPAD in maternal grandmother Substance Abuse History unknown, she denies Personal History 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 Patient History Medical History (Updated 03/04/21 @ 11:24 by Elza Norman MD) Chronic migraine Gastritis Pharyngitis Social History Smoking Status: Never smoker Feels Safe at Home: Yes Physical Exam Psychiatric: Orientation: alert, oriented x 3 and + guarded Apperance: appropriately dressed and appropriately groomed Eye Contact: + poor eye contact Motor Behavior: + psychomotor agitation Speech: normal rate/rhythm/volume of speech (brief, sparse) Affect: + irritable affect Mood: + irritable mood; no depressed mood and no anxious mood Thought Process: + thought blocking Thought Content: reality based without delusions Suicidal Thoughts: denies suicidal thoughts Homicidal Thoughts: denies homicidal thoughts Hallucinations: no auditory hallucinations (she denies but appears to be actively responding) and no visual hallucinations Cognition: recent memory grossly intact, remote memory grossly intact and language grossly intact; + attention not intact Insight: + impaired insight Judgement: + impaired judgement Vital Signs (Past 24 Hours): Last Vital Signs Temp 36.7 C 03/03/21 20:20 Pulse 65 03/04/21 10:36 Resp 18 03/04/21 10:36 BP 209/134 H 03/04/21 10:36 Pulse Ox 98 03/04/21 10:36 Review of Systems All systems reviewed & are unremarkable except as noted in HPI & below Results & Data (PSY) Medications Administered Enoxaparin Sodium (Enoxaparin Inj 40 Mg/0.4 Ml Syr) 40 mg SQ QAM [facility] Stop: 04/03/21 08:59 Last Admin: 03/04/21 08:35 Dose: 40 mg Documented by: [id number] Potassium Chloride 40 meq/ (Lactated Ringer's) 1,020 mls @ 75 mls/hr IV .[id number] [facility] Stop: 03/04/21 12:35 Last Admin: 03/03/21 23:29 Dose: Not Given Documented by: [id number] Lisinopril (Lisinopril 5 Mg Tab) 5 mg PO QAM [facility] Stop: 04/03/21 08:59 Last Admin: 03/04/21 08:35 Dose: 5 mg Documented by: [id number] Propranolol HCl (Propranolol Hcl 10 Mg Tab) 10 mg PO DAILY [facility] Stop: 04/03/21 08:59 Last Admin: 03/04/21 08:35 Dose: 10 mg Documented by: [id number] Coding Level of Care Code 29490 Inpt Consult Level 3 Diagnoses Bipolar 1 disorder with moderate jeb F31.12
[2021-03-04] MEDS ORDERED: traZODone HCL 50 MG TAB PO PRN (11:26)
[2021-03-04] MEDS: OLANZAPINE 2.5 MG TAB PO SCH (12:24)
[2021-03-04] MEDS ORDERED: hydrALAZINE HCL 20 MG/ML VIAL IV STA (12:31)
--- NOTE | 2021-03-04 14:31 | Hospitalist Progress Note ---
Date of Service March 04, 2021 Assessment & Plan (1) Asymptomatic hypertensive urgency: Plan: Labetalol given IV overnight. Lisinopril initiated at low dose. BP this am is 200 systolic. Lost PIV so gave one dose clonidine. Repeat BP came down to the 160s systolic. Would continue to follow and change lisinopril to 20mg daily for now. Intermittent loss of IV expected with ongoing manic behavior. Clonidine and labetalol not ideal given propranolol use. Nitro paste will give her a headache. (2) Bipolar 1 disorder with moderate jeb: Plan: Cont with olanzapine, start lamictal in am, and cont holding sertraline per psych. One to one observation recommended. (3) Non-traumatic rhabdomyolysis: Plan: Slightly elevated CK likely related to recent jeb leading to no sleep, poor PO intake and stress. She received some IVF, however, has removed her peripheral IC. Encourage PO hydration as tolerated. Repeat CK in am. No renal dysfunction. (4) Asymptomatic bacteriuria: Plan: Patient currently denying any urinary symptoms or abdominal pain. Holding off on antibiotics pending culture results which are pending. (5) H/O migraine: Plan: Continues on propranolol for migraine prophylaxis. Denies any issues at this time. (6) DVT prophylaxis: Plan: SCDs Full Code Dispo-currently on 302 hold. Psych titrating meds and BP improving. Suspect she will require inpatient psychiatric treatment but will defer to psychiatrist for that. [facility] Plan: Slight elevation in CK, trend in am. Lost IV so tough to give IVF but she did receive some. Likely a result of recent manic behavior leading to loss of sleep, decreased PO intake and overall stress. Admission and Anticipated Discharge Date Admission Date: March 04, 2021 Subjective 41-year-old female recently seen at the [facility] out of concern for aberrant behavior and abdominal pain presented to the ER for persistent right upper quadrant abdominal pain and a mental health evaluation. She has a history of bipolar disorder and experienced manic-like behavior recently. She denies any emotional distress currently. She removed her peripheral IV overnight, however, did not remember doing this. Her blood pressure has been elevated and is improving with oral clonidine. Intravenous labetalol was given overnight. She was evaluated by psychiatry and is she remains on a 302 hold. The patient denies any current emotional distress or physical pain. She denies any urinary tract infection symptoms including no dysuria, urgency, pelvic pain, fever chills or other issues. She denies any chest pain or trouble breathing. Will she last took Ritalin 2 weeks ago which reportedly did not agree with her. She is otherwise feeling well and tolerating p.o. Review of Systems Review of Systems: All systems were reviewed and negative except as indicated in subjective above. Physical Exam Physical Exam: CONSTITUTIONAL: WNWD, vitals as above, generally well- appearing, NAD EYES: normal conjunctivae, no scleral icterus ENT: external ear and nose normal, MMM NECK: trachea midline RESPIRATORY: clear to auscultation bilaterally, no crackles, rales or wheezes, normal respiratory effort CARDIOVASCULAR: regular rate and rhythm, S1 and 2 heard without murmurs, gallops or rubs, no JVD, no peripheral edema GASTROINTESTINAL: soft, nontender, ND, no guarding MUSCULOSKELETAL: strength 5/5 throughout, head is normocephalic and atraumatic SKIN: warm and dry NEUROLOGIC: CN 2-12 grossly intact, normal cognition, normal speech, no tremor, no gross focal deficits. PSYCHIATRIC: alert cooperative and oriented to person, place and time. Results & Data Results & Data ([facility]) Vital Signs (Past 12 Hours) Vital Signs Pulse Resp BP Pulse Ox 03/04/21 14:17 90 18 155/92 H 98 03/04/21 12:58 91 H 18 160/104 H 98 03/04/21 11:12 84 18 193/130 H 98 03/04/21 10:36 65 18 209/134 H 98 03/04/21 06:00 94 H 18 191/116 H 99 Laboratory Results Short CBC 03/03/21 03/04/21 Range/Units 19:03 05:27 WBC 13.30 H 11.96 H (4.8-10.8) K/uL Hgb 16.4 H 14.8 (12.0-16.0) g/dL Hct 46.3 42.9 (37-47) % Plt Count 280 247 (130-400) K/uL BMP 03/03/21 03/04/21 19:03 05:27 Sodium 142 141 Potassium 3.0 L 3.6 D Chloride 109 H 111 H Carbon Dioxide 27 25 BUN 13 14 Creatinine 0.79 0.64 Glucose 117 H 98 Calcium 9.8 9.4 Cardiac Enzymes 03/03/21 Range/Units 19:03 Total Creatine Kinase 963 H (26-192) U/L Liver Function 03/03/21 Range/Units 19:03 Total Bilirubin 1.1 H (0.2-1) mg/dl AST 35 (15-37) U/L ALT 49 (12-78) U/L Alkaline Phosphatase 70 (45-117) U/L Albumin 4.2 (3.4-5.0) gm/dl Urine 03/03/21 Range/Units 18:37 Urine Color Yellow Urine Appearance Clear (Clear) Urine pH 6.5 (4.5-7.5) Ur Specific [place] 1.007 (1.000-1.030) Urine Protein Negative (Negative) Urine Glucose (UA) Negative (Negative) Diagnostic Findings Chest X-Ray 03/03/21 22:13 XR chest 1V portable HISTORY: Hypertensive urgency. COMPARISON: None. FINDINGS: The lungs are clear. Cardiac silhouette is normal in size. No pleural effusions. No pneumothorax. IMPRESSION: No acute process. ACT 112: Negative or not required by law. Electronically signed by: Kilo Mckeon M.D. 03/04/2021 7:21 AM Medications Administered Current Inpatient Medications Acetaminophen (Acetaminophen 325 Mg Tab) 650 mg PO Q4H PRN PRN Reason: Pain or Fever Stop: 04/03/21 01:31 Enoxaparin Sodium (Enoxaparin Inj 40 Mg/0.4 Ml Syr) 40 mg SQ [facility] Stop: 04/03/21 08:59 Last Admin: 03/04/21 08:35 Dose: 40 mg Documented by: Promethazine HCl 12.5 mg/ (Sodium Chloride) 50.5 mls @ 202 mls/hr IV Q6H PRN PRN Reason: Nausea And Vomiting Stop: 04/03/21 01:31 Promethazine HCl 12.5 mg/ (Sodium Chloride) 50.5 mls @ 202 mls/hr IV Q6H PRN PRN Reason: Nausea And Vomiting Stop: 04/03/21 01:31 Lamotrigine (Lamotrigine 25 Mg Tab) 25 mg PO [facility] Stop: 04/04/21 08:59 Lisinopril (Lisinopril 5 Mg Tab) 5 mg PO [facility] Stop: 04/03/21 08:59 Last Admin: 03/04/21 08:35 Dose: 5 mg Documented by: Olanzapine (Olanzapine 10 Mg/2.1 Ml Sdv) 2.5 mg IM Q4H PRN PRN Reason: Anxiety/Agitation Stop: 04/03/21 01:31 Olanzapine (Olanzapine 2.5 Mg Tab) 2.5 mg PO QAM [facility] Stop: 04/03/21 11:29 Last Admin: 03/04/21 12:24 Dose: 2.5 mg Documented by: Olanzapine (Olanzapine 10 Mg Tab) 10 mg PO HS [facility] Stop: 04/03/21 20:59 Propranolol HCl (Propranolol Hcl 10 Mg Tab) 10 mg PO DAILY [facility] Stop: 04/03/21 08:59 Last Admin: 03/04/21 08:35 Dose: 10 mg Documented by: Trazodone HCl (Trazodone Hcl 50 Mg Tab) 50 mg PO HS PRN PRN Reason: Insomnia Stop: 04/03/21 20:59
[2021-03-04] MEDS ORDERED: traZODone HCL 50 MG TAB PO SCH (21:00)
[2021-03-04] MEDS ORDERED: OLANZapine 10 MG TAB PO SCH (21:00)
[2021-03-05] MEDS ORDERED: LACTATED RINGER'S 1,000 ML IV ONE (02:01)
[2021-03-05 03:14] LABS: Influenza A virus by PCR Negative (Neg); Influenza B virus by PCR Negative (Neg); RSV by PCR Negative (Neg)
[2021-03-05 07:02] LABS: Hematocrit (blood only) 47.4 % (37-47); Hemoglobin 16.6 g/dL (12.0-16.0); Mean Corpuscular Hemoglobin 31.8 pg (25-34); Mean Corpuscular Volume 90.8 fL (80-100); Mean Platelet Volume 11.3 fL (7.4-10.4); Platelet Count 259 K/uL (130-400); RDW Coefficient of Variation 12.4 % (11.5-14.5); RDW Standard Deviation 41.6 fL (36.4-46.3); Red Blood Count 5.22 M/uL (4.2-5.4); White Blood Count 10.18 K/uL (4.8-10.8)
[2021-03-05 07:34] LABS: BUN Creatinine Ratio 12.6 (10-20); Calcium 9.9 mg/dl (8.5-10.1); Creatinine Clr Calc Pharmacy 111.5 ml/min; Est GFR (African American) 114.8 ml/min; Magnesium 2.5 mg/dl (1.8-2.4); Potassium 3.3 mmol/L (3.5-5.1)
[2021-03-05 07:37] LABS: Phosphorus 2.8 mg/dl (2.5-4.9)
--- NOTE | 2021-03-05 07:57 | Hospitalist Progress Note ---
Date of Service March 05, 2021 Assessment & Plan (1) Asymptomatic hypertensive urgency: Plan: Lisinopril increased to 20mg daily, would recommend this be continued daily. BP this am is 200 systolic. Repeat BP came down to 156/98 after lisinopril, haldol and Ativan. Intermittent situational elevation in blood pressure. Continue lisinopril daily and recommend BMP in 2 weeks to monitor her lytes and renal function. Also for recheck blood pressure as outpatient with PCP. (2) Bipolar 1 disorder with moderate jeb: Plan: Cont plan per psychiatry team. Transition to inpatient mental health facility. (3) Non-traumatic rhabdomyolysis: Plan: Slightly elevated CK likely related to recent jeb leading to no sleep, poor PO intake and stress. She received some IVF, however, has removed her peripheral IV. Encourage PO hydration as tolerated. Repeat CK is 963 to 729 this am. No renal dysfunction. Could consider repeat CK check as outpatient in two weeks with PCP. (4) Asymptomatic bacteriuria: Plan: Patient currently denying any urinary symptoms or abdominal pain. Urine culture is negative for infection. (5) H/O migraine: Plan: Continues on propranolol for migraine prophylaxis. Denies any issues at this time. (6) DVT prophylaxis: Plan: SCDs Full Code Dispo-currently on 302 hold. Transition to inpatient mental health unit. [facility]: Admission and Anticipated Discharge Date Admission Date: March 04, 2021 Subjective 41-year-old female recently seen at the [facility] out of concern for aberrant behavior consistent with jeb, has history of bipolar disorder OVERNIGHT EVENTS: Patient pulled the CODE BLUE alarm 7 times, threatened staff and at one point locked herself in the bathroom. Agitated with intermittent periods of calm and denying all behaviors. At one point, locked herself in the bathroom overnight. Demanded to see a doctor in speech therapist early intervention hours. Did report feeling chills and Started lactated Ringer's, however patient pulled out peripheral IV and is now refusing therapy including oral medications. BP up this am but when rechecked after she was more calm came down to 177/101. After administration of lisinopril, Haldol and Ativan this morning, her blood pressure is much more manageable. She currently denies any issues including no chest pain, SOB or abdominal pain. Her erratic behavior continues intermittently and she is being transferred to an inpatient behavioral health unit. Review of Systems Review of Systems: All systems were reviewed and negative except as indicated on subjective above. Physical Exam Physical Exam: CONSTITUTIONAL: WNWD, vitals as above, generally well- appearing, NAD EYES: normal conjunctivae, no scleral icterus ENT: external ear and nose normal, MMM NECK: trachea midline RESPIRATORY: clear to auscultation bilaterally, no crackles, rales or wheezes, normal respiratory effort CARDIOVASCULAR: regular rate and rhythm, S1 and 2 heard without murmurs, gallops or rubs, no JVD, no peripheral edema GASTROINTESTINAL: soft, nontender, ND, no guarding MUSCULOSKELETAL: strength 5/5 throughout, head is normocephalic and atraumatic. Moves around independently in the bed. SKIN: warm and dry NEUROLOGIC: CN 2-12 grossly intact, normal cognition, normal speech, no tremor, no gross focal deficits. PSYCHIATRIC: alert cooperative , refuses to answer some questions, will shake her head yes or no to some questions. Poor eye contact. Results & Data Results & Data ([facility]) Vital Signs (Past 12 Hours) Vital Signs Temp Pulse Pulse Resp BP Pulse Ox 03/05/21 07:04 36.6 C 62 22 206/104 H 98 03/05/21 00:00 58 L 03/04/21 22:52 36.9 C 61 14 158/93 H 96 03/04/21 22:45 72 18 150/90 H 98 Laboratory Results Short CBC 03/05/21 Range/Units 06:43 WBC 10.18 (4.8-10.8) K/uL Hgb 16.6 H (12.0-16.0) g/dL Hct 47.4 H (37-47) % Plt Count 259 (130-400) K/uL BMP 03/05/21 06:43 Sodium 140 Potassium 3.3 L Chloride 107 Carbon Dioxide 28 BUN 9 D Creatinine 0.75 Glucose 113 H Calcium 9.9 Cardiac Enzymes 03/05/21 Range/Units 06:43 Total Creatine Kinase 729 H (26-192) U/L Medications Administered Current Inpatient Medications Acetaminophen (Acetaminophen 325 Mg Tab) 650 mg PO Q4H PRN PRN Reason: Pain or Fever Stop: 04/03/21 01:31 Benztropine Mesylate (Benztropine Mesylate 1 Mg/Ml 2 Ml Amp) 1 mg IM Q6 PRN PRN Reason: muscle tightness/think tongue Stop: 04/04/21 09:28 Enoxaparin Sodium (Enoxaparin Inj 40 Mg/0.4 Ml Syr) 40 mg SQ [facility] Stop: 04/03/21 08:59 Last Admin: 03/05/21 08:12 Dose: Not Given Documented by: Haloperidol (Haloperidol 5 Mg Tab) 5 mg PO Q6 PRN PRN Reason: Anxiety/Agitation Stop: 04/04/21 10:26 Last Admin: 03/05/21 11:02 Dose: 5 mg Documented by: Haloperidol Lactate (Haloperidol Lactate 5 Mg/Ml 1 Ml Vial) 5 mg IM Q4 PRN PRN Reason: Agitation Stop: 04/04/21 09:28 Promethazine HCl 12.5 mg/ (Sodium Chloride) 50.5 mls @ 202 mls/hr IV Q6H PRN PRN Reason: Nausea And Vomiting Stop: 04/03/21 01:31 Promethazine HCl 12.5 mg/ (Sodium Chloride) 50.5 mls @ 202 mls/hr IV Q6H PRN PRN Reason: Nausea And Vomiting Stop: 04/03/21 01:31 Lactated Ringer's (Lr) 1,000 mls @ 60 mls/hr IV .[id number] ONE Stop: 03/05/21 18:40 Last Infusion: 03/05/21 10:49 Dose: Infused Documented by: Lamotrigine (Lamotrigine 25 Mg Tab) 25 mg PO [facility] Stop: 04/04/21 08:59 Last Admin: 03/05/21 08:39 Dose: 25 mg Documented by: Lisinopril (Lisinopril 20 Mg Tab) 20 mg PO [facility] Stop: 04/04/21 08:59 Last Admin: 03/05/21 08:41 Dose: 20 mg Documented by: Lorazepam (Lorazepam 2 Mg/Ml Vial (Im Use)) 2 mg IM Q6 PRN PRN Reason: Agitation Stop: 04/04/21 09:28 Lorazepam (Lorazepam 1 Mg Tab) 2 mg PO Q6 PRN PRN Reason: Anxiety/Agitation Stop: 04/04/21 10:26 Last Admin: 03/05/21 10:54 Dose: 2 mg Documented by: Olanzapine (Olanzapine 2.5 Mg Tab) 2.5 mg PO QAM [facility] Stop: 04/03/21 11:29 Last Admin: 03/05/21 08:40 Dose: 2.5 mg Documented by: Olanzapine (Olanzapine 10 Mg Tab) 10 mg PO HS [facility] Stop: 04/03/21 20:59 Last Admin: 03/04/21 21:30 Dose: 10 mg Documented by: Propranolol HCl (Propranolol Hcl 10 Mg Tab) 10 mg PO DAILY [facility] Stop: 04/03/21 08:59 Last Admin: 03/05/21 08:40 Dose: 10 mg Documented by: Trazodone HCl (Trazodone Hcl 50 Mg Tab) 50 mg PO HS PRN PRN Reason: Insomnia Stop: 04/03/21 20:59
[2021-03-05] MEDS: ENOXAPARIN INJ 40 MG/0.4 ML SYR SQ SCH (08:12)
[2021-03-05] MEDS: PROPRANOLOL HCL 10 MG TAB PO SCH (08:40)
[2021-03-05] MEDS: OLANZAPINE 2.5 MG TAB PO SCH (08:40)
[2021-03-05] MEDS ORDERED: lamoTRIgine 25 MG TAB PO SCH (09:00)
[2021-03-05] MEDS ORDERED: lisinopril 20 MG TAB PO SCH (09:00)
[2021-03-05] MEDS ORDERED: LORazepam 2 MG/ML VIAL (IM USE) IM PRN (09:29)
[2021-03-05] MEDS ORDERED: HALOPERIDOL LACTATE 5 MG/ML 1 ML VIAL IM PRN (09:29)
[2021-03-05] MEDS ORDERED: BENZTROPINE MESYLATE 1 MG/ML 2 ML AMP IM PRN (09:29)
[2021-03-05] MEDS ORDERED: haloperidoL 5 MG TAB PO PRN (10:27)
[2021-03-05] MEDS ORDERED: LORazepam 1 MG TAB PO PRN (10:27)
--- NOTE | 2021-03-05 10:38 | Psychiatric Progress Note ---
Date of Service March 05, 2021 Impression / Recommendations Impression The patient is a 41 year old woman with a history of mood disorder (records from outpatient provider last seen 03/03 list dx as MDD but there was no mention of ED stay and current jeb in the phone appointment). So far Zoloft was held, lamictal restarted, and patient has complied with low doses of olanzapine. She is currently refusing to discuss care further and is asking to leave the hospital. (1) Bipolar 1 disorder with moderate jeb: 302 warrant obtained from liaison. Ordered PO and IM Haldol 5 mg and Ativan 2 mg to address agitation and hopefully better control BP pending medical clearance and transfer to an inpatient psychiatry unit. Will need to be a completed 302 when medically cleared. Continue 1-on-1 per hospital policy. Risk Factors Assessment Do You Have Access To A Gun?: No Mental Health Diagnoses: Yes Previous Attempt: No Hopelessness: No Protective Factors Assessment Stable Relationships: Yes Supportive Family: Yes Good Rapport with Provider: Yes Interval History Identifying Information 41 yo female, outpatient at [facility] in [facility], presented to [facility] just after discharge from [place] [facility] where she was en extended boarder. Chief Complaint "what are those papers about, I want out of here". Review of Systems Notes patient uncooperative due to MH status. Subjective Subjective Patient was seen & assessed and interval progress reviewed with liaison and Dr. Dailey. Patient has been behaviorally challenging overnight on the medical floor. She did not sleep much at all and pulled out her IV and the code blue alarm. When redirected she made provocative and agitated statements toward staff indicating she would get physically aggressive. She would not wear telemetry leads and was demanding and locked self in the bathroom at one point. Today she is paranoid about my role in her care, angry with 1-on-1, refusing to elaborate on her symptoms or discuss a treatment plan. Physical Exam Psychiatric Orientation: alert and + guarded Eye Contact: + fair eye contact (but glaring) Speech: normal rate/rhythm/volume of speech (brief, sparse) Affect: + irritable affect Mood: + irritable mood; no depressed mood and no anxious mood Thought Process: + concrete thought process Thought Content: + paranoid patient ended interview patient ended interview does not appear to be responding to internal stimuli Cognition: language grossly intact; + attention not intact Insight: + severely impaired insight Judgement: + impaired judgement Vital Signs (Past 24 Hours) Last Vital Signs Temp 36.6 C 03/05/21 07:04 Pulse 62 03/05/21 07:04 Resp 22 03/05/21 07:04 BP 177/101 H 03/05/21 08:04 Pulse Ox 98 03/05/21 07:04 Results & Data ([facility]) Laboratory Results Laboratory Results - last 24 hr 03/05/21 03/05/21 03/05/21 02:20 06:43 06:43 WBC 10.18 RBC 5.22 Hgb 16.6 H Hct 47.4 H MCV 90.8 MCH 31.8 MCHC 35.0 RDW Std Deviation 41.6 RDW Coeff of Jerry 12.4 Plt Count 259 MPV 11.3 H Sodium 140 Potassium 3.3 L Chloride 107 Carbon Dioxide 28 Anion Gap 5.0 BUN 9 D Creatinine 0.75 Est Cr Clr Drug Dosing 111.5 Est GFR ( Amer) 114.8 Est GFR (Non-Af Amer) 99.0 BUN/Creatinine Ratio 12.6 Glucose 113 H Calcium 9.9 Phosphorus 2.8 Magnesium 2.5 H Total Creatine Kinase 729 H SARS-CoV-2 (PCR) NEGATIVE Influenza Type A (PCR) Negative Influenza Type B (PCR) Negative RSV (RT-PCR) Negative Current Inpatient Medications Current Inpatient Medications: Current Inpatient Medications Acetaminophen (Acetaminophen 325 Mg Tab) 650 mg PO Q4H PRN PRN Reason: Pain or Fever Stop: 04/03/21 01:31 Benztropine Mesylate (Benztropine Mesylate 1 Mg/Ml 2 Ml Amp) 1 mg IM Q6 PRN PRN Reason: muscle tightness/think tongue Stop: 04/04/21 09:28 Enoxaparin Sodium (Enoxaparin Inj 40 Mg/0.4 Ml Syr) 40 mg SQ [facility] Stop: 04/03/21 08:59 Last Admin: 03/05/21 08:12 Dose: Not Given Documented by: Haloperidol (Haloperidol 5 Mg Tab) 5 mg PO Q6 PRN PRN Reason: Anxiety/Agitation Stop: 04/04/21 10:26 Haloperidol Lactate (Haloperidol Lactate 5 Mg/Ml 1 Ml Vial) 5 mg IM Q4 PRN PRN Reason: Agitation Stop: 04/04/21 09:28 Promethazine HCl 12.5 mg/ (Sodium Chloride) 50.5 mls @ 202 mls/hr IV Q6H PRN PRN Reason: Nausea And Vomiting Stop: 04/03/21 01:31 Promethazine HCl 12.5 mg/ (Sodium Chloride) 50.5 mls @ 202 mls/hr IV Q6H PRN PRN Reason: Nausea And Vomiting Stop: 04/03/21 01:31 Lactated Ringer's (Lr) 1,000 mls @ 60 mls/hr IV .[id number] ONE Stop: 03/05/21 18:40 Last Infusion: 03/05/21 05:51 Dose: 0 mls/hr Documented by: Lamotrigine (Lamotrigine 25 Mg Tab) 25 mg PO QAM [facility] Stop: 04/04/21 08:59 Last Admin: 03/05/21 08:39 Dose: 25 mg Documented by: Lisinopril (Lisinopril 20 Mg Tab) 20 mg PO QAM [facility] Stop: 04/04/21 08:59 Last Admin: 03/05/21 08:41 Dose: 20 mg Documented by: Lorazepam (Lorazepam 2 Mg/Ml Vial (Im Use)) 2 mg IM Q6 PRN PRN Reason: Agitation Stop: 04/04/21 09:28 Lorazepam (Lorazepam 1 Mg Tab) 2 mg PO Q6 PRN PRN Reason: Anxiety/Agitation Stop: 04/04/21 10:26 Olanzapine (Olanzapine 2.5 Mg Tab) 2.5 mg PO QAM [facility] Stop: 04/03/21 11:29 Last Admin: 03/05/21 08:40 Dose: 2.5 mg Documented by: Olanzapine (Olanzapine 10 Mg Tab) 10 mg PO HS [facility] Stop: 04/03/21 20:59 Last Admin: 03/04/21 21:30 Dose: 10 mg Documented by: Propranolol HCl (Propranolol Hcl 10 Mg Tab) 10 mg PO DAILY [facility] Stop: 04/03/21 08:59 Last Admin: 03/05/21 08:40 Dose: 10 mg Documented by: Trazodone HCl (Trazodone Hcl 50 Mg Tab) 50 mg PO HS PRN PRN Reason: Insomnia Stop: 04/03/21 20:59
[2021-03-05] MEDS ORDERED: haloperidoL 5 MG TAB PO ONE (14:05)
[2021-03-05] MEDS ORDERED: LORazepam 1 MG TAB PO STA (14:05)
--- NOTE | 2021-03-05 14:19 | Discharge Summary ---
Date of Service March 05, 2021 Admission HPI Per Admitting Provider History obtained from patient, family, and records. Patient is a fair historian. Medical history significant for anxiety/mood disorder, fibromyalgia, migraine, past tobacco/alcohol abuse. Patient observed at [facility] ER from February 27 to March 03, 2021 for agitation/paranoia/mormonism hallucinations, abdominal pain without urinary symptoms. History of Ritalin Rx which patient stopped days prior to [facility] ER consultation secondary to overstimulation. Abdominal imaging negative. Initial CPK noted to be elevated 1152. UA WBC esterase, nitrite positive. Urine CS no significant growth. No antibiotics given during ER stay. Psychiatry recommended inpatient psych admission once with medical clearance for abdominal pain complaints on initial evaluation at the [facility] ER last February 27. 302 petition by patient's mother was to be upheld. Patient not suicidal as per note. Psychiatry recommended holding off on patient's Zoloft given manic-like symptoms and patient's Lamictal given questionable compliance with medication. Zyprexa 5 mg p.o. at bedtime recommended. Patient found to be calm, coherent and to have good behavior control on follow- up Psychiatry eval at [facility] ER this a.m in contrast to acute psychosis from few days ago as per documentation. Patient felt to be safe for discharge. 302 canceled. Patient instructed to follow-up with her psychiatry provider. Patient found to be agitated and manic again as per daughter upon return home. Patient denies family accounts of her behavior. No chest pain, no shortness of breath, no headache, no abdominal pain, no dysuria. Appetite okay. Patient denies suicidality. Patient given ceftriaxone at the ER for possible UTI. Medical History as above Surgical History : None Family History : Hypertension Personal/Social history : Past tobacco/alcohol abuse, buffet manager Discharge Exam CONSTITUTIONAL: WNWD, vitals as above, generally well-appearing, NAD EYES: normal conjunctivae, no scleral icterus ENT: external ear and nose normal, MMM NECK: trachea midline RESPIRATORY: clear to auscultation bilaterally, no crackles, rales or wheezes, normal respiratory effort CARDIOVASCULAR: regular rate and rhythm, S1 and 2 heard without murmurs, gallops or rubs, no JVD, no peripheral edema GASTROINTESTINAL: soft, nontender, ND, no guarding MUSCULOSKELETAL: strength 5/5 throughout, head is normocephalic and atraumatic. Moves around independently in the bed. SKIN: warm and dry NEUROLOGIC: CN 2-12 grossly intact, normal cognition, normal speech, no tremor, no gross focal deficits. PSYCHIATRIC: alert cooperative , refuses to answer some questions, will shake her head yes or no to some questions. Poor eye contact. Discharge Data Allergies Allergy/AdvReac Type Severity Reaction Status Date / Time No Known Allergies Allergy Unverified 10/16/18 12:14 Consultations 03/03/21 21:12 ED Decision to Admit Stat 03/04/21 01:32 Consult Psychiatry Routine Ordered Studies 03/03/21 18:58 US gallbladder Stat Hospital Course (1) Asymptomatic hypertensive urgency: Lisinopril increased to 20mg daily, would recommend this be continued daily. BP this am is 200 systolic. Repeat BP came down to 156/98 after lisinopril, haldol and Ativan. Intermittent situational elevation in blood pressure. Continue lisinopril daily and recommend BMP in 2 weeks to monitor her lytes and renal function. Also for recheck blood pressure as outpatient with PCP. (2) Bipolar 1 disorder with moderate jeb: Cont plan per psychiatry team. Transition to inpatient mental health facility. (3) Non-traumatic rhabdomyolysis: Slightly elevated CK likely related to recent jeb leading to no sleep, poor PO intake and stress. She received some IVF, however, has removed her peripheral IV. Encourage PO hydration as tolerated. Repeat CK is 963 to 729 this am. No renal dysfunction. Could consider repeat CK check as outpatient in two weeks with PCP. (4) Asymptomatic bacteriuria: Patient currently denying any urinary symptoms or abdominal pain. Urine culture is negative for infection. (5) H/O migraine: Continues on propranolol for migraine prophylaxis. Denies any issues at this time. (6) DVT prophylaxis: SCDs Full Code Dispo-currently on 302 hold. Transition to inpatient mental health unit. DO Zoë Perales Hospitalist Discharge Plan Discharge Items Patient Disposition: Transfer Behavioral Health Fac Reason For Visit: HTN URG, RHABDOMYOISIS Discharge Diagnosis: Hypertensive urgency Bipolar disorder with jeb Nontraumatic rhabdomyolysis Condition on Discharge: Good Activity: Resume your previous activity Non-emergency contact: Primary Care Provider Call non-emergency contact if: you have any medication questions and your symptoms worsen Follow-up/Referrals: PCP,NO [Primary Care Provider] - Diet: Low Sodium (2gm) Addtl Attending Provider Instructions: As a result of your elevated blood pressure, you have been placed on lisinopril 20mg daily. Please follow-up with your primary care provider within 1-2 weeks for a repeat check of your blood pressure, and for blood work to check your kidney function and electrolytes. It was a pleasure taking care of you! Please call if you have any questions or problems. You can reach a [facility] hospitalist on duty at [facility] 24 hours a day by calling [phone]. Take care of yourself. Vidya Dailey, DO [facility] Pending Studies at Discharge: No Stand-Alone Forms: [facility] Medications and DC Order Prescriptions: New lisinopril 20 mg Tablet 20 mg PO QAM Qty: 30 RF: 0 Continued propranolol 10 mg tablet 10 mg PO DAILY RF: 0 trazodone 50 mg tablet 50 mg PO DAILY RF: 0 Discontinued sertraline 100 mg tablet 100 mg PO QAM RF: 0 lamotrigine 100 mg tablet 100 mg PO QAM RF: 0 Discharge Orders: Discharge Order (Routine); Ordered 03/05/21 Ordered By: Vidya Dailey Admission Data Admit Date/Time: 03/04/21 01:14 Attending Provider: Vidya Dailey Admit Provider: Jose Alejandro Nation Primary Care Provider: PCP,NO Other Providers: Jose Alejandro Nation ; Elza Norman ; Karen Oliveira ; Anita Estes ; Ciro Winter
[2021-03-06 02:20] LABS: Marijuana Quant, GCMS Urine 979 ng/mL (<5)
[2021-03-07 18:13] LABS: SARS CoV2 RNA(COVID-19) InHosp NEGATIVE (Negative)
== END 2021-03-05 16:06 ==
LOC: ED 18:01 → INTOOBSV 22:16 → EDINP 23:31 → SUATTDRO 03-04 01:14 → 2S 03-04 23:20

== ENCOUNTER 2021-03-05 15:06 | Inpatient (IN) ==
[2021-03-05] MEDS ORDERED: BISMUTH SUBSALICYLATE LIQD 236 ML PO PRN (15:21)
[2021-03-05] MEDS ORDERED: hydrOXYzine HCl 25 MG TAB PO PRN ×2 (15:21)
[2021-03-05] MEDS ORDERED: ALUMINUM/MAGNESIUM SUSP 30 ML UDC PO PRN (15:21)
[2021-03-05] MEDS ORDERED: SODIUM CHLORIDE 0.65% NA SOLN 45 ML (OCEAN) PRN (15:21)
[2021-03-05] MEDS ORDERED: BENZTROPINE MESYLATE 1 MG TAB PO PRN (15:26)
[2021-03-05] MEDS ORDERED: HALOPERIDOL LACTATE 5 MG/ML 1 ML VIAL IM PRN (15:26)
[2021-03-05] MEDS ORDERED: BENZTROPINE MESYLATE 1 MG/ML 2 ML AMP IM PRN (15:26)
[2021-03-05] MEDS ORDERED: ZOLPIDEM TARTRATE 10 MG TAB PO PRN (15:29)
[2021-03-05] MEDS ORDERED: LORazepam 2 MG/ML VIAL (IM USE) IM PRN (15:31)
[2021-03-05] MEDS: LORazepam 1 MG TAB PO PRN (16:21)
[2021-03-05] MEDS: OLANZapine 10 MG TAB PO SCH (21:29)
[2021-03-05] MEDS: LORazepam 1 MG TAB PO SCH (21:32)
[2021-03-06] MEDS: PROPRANOLOL HCL 10 MG TAB PO SCH (08:04)
[2021-03-06] MEDS: LORazepam 1 MG TAB PO SCH ×3 (08:05→20:34)
[2021-03-06] MEDS: lisinopril 20 MG TAB PO SCH (08:05)
[2021-03-06] MEDS: LORazepam 1 MG TAB PO PRN (08:57)
[2021-03-06 09:05] LABS: Glucose Fasting 114 mg/dl (70-99)
[2021-03-06 09:12] LABS: Chol HDL Ratio 5; Cholesterol 187 mg/dl (0-200); HDL Cholesterol 41 mg/dl; LDL Cholesterol Calculated 122 mg/dl; Triglycerides 119 mg/dl (0-150); VLDL Cholesterol 24 mg/dl
[2021-03-06] MEDS: ACETAMINOPHEN 325 MG TAB PO PRN (11:39)
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
[2021-03-06] MEDS: MAGNESIUM HYDROXIDE SUSP 30 ML UDC PO PRN (14:35)
[2021-03-06] MEDS: haloperidoL 5 MG TAB PO PRN (16:36)
[2021-03-06] MEDS: lamoTRIgine 25 MG TAB PO SCH (20:27)
[2021-03-06] MEDS: OLANZapine 10 MG TAB PO SCH (21:16)
[2021-03-07] MEDS: ACETAMINOPHEN 325 MG TAB PO PRN ×2 (05:31→14:36)
[2021-03-07] MEDS: PROPRANOLOL HCL 10 MG TAB PO SCH ×2 (08:10→20:42)
[2021-03-07] MEDS: SERTRALINE HCL 50 MG TABLET PO SCH (08:10)
[2021-03-07] MEDS: LORazepam 1 MG TAB PO SCH ×3 (08:10→20:42)
[2021-03-07] MEDS: lisinopril 20 MG TAB PO SCH (08:10)
--- NOTE | 2021-03-07 12:33 | Psychiatric Progress Note ---
Date of Service March 07, 2021 Impression / Recommendations Impression 41 yo female with significant paranoia, insomnia, irritability, and even aggression necessitating 2 separate 302 since 02/27/21, seemingly triggered by use of stimulant medication but clearly underlying mood instability and family history of bipolar disorder. More cooperative on transfer to the unit following multiple prn Haldol and Ativan. (1) Bipolar 1 disorder with moderate jeb: 03/07/21: titrate Zyprexa 15 mg po qhs, continue TID Ativan with prn, monitor for activation on Zoloft and rash with lamictal restart. 03/06/21: The patient was admitted to the [facility] ([facility] unit) on q15 min checks (behavioral with suicide precautions) for safety. The patient will participate in group, recreational, and milieu therapies and will be offered additional individual and family sessions as clinically appropriate. The patient had some difficulty tolerating the interview but voiced understanding of side effect profile of her medications and risks/benefits. Reviewed that cholesterol and fasting blood sugar were obtained today for monitoring with Zyprexa and there are no abnormal motor movements at baseline. She will continue with Haldol and Ativan prns, no evidence of EPS at this time. Discussed need to retitrate Lamictal given risks of Arash's Griffin reaction and that Zoloft can add to mood instability. She reports taking Zoloft for years with no issues and reports she experiences discontinuation syndrome and fogginess if misses dose so agreed to restart at lower dose tomorrow. Inventory Assets Strengths: intelligent, family support, loves her dog Needs: outpatient therapy, increase insight into mood instability and recent behaviors Risk Factors Assessment : Yes Do You Have Access To A Gun?: No Mental Health Diagnoses: Yes Substance Use Disorders: No Previous Attempt: No Protective Factors Assessment Employed: Yes Supportive Family: Yes Interval History Identifying Information SERGEI DAVID is a 41-year-old F who currently lives in alone in the [place] area, has a history of mood disorder, and was admitted on 03/05/21 16:06 on a 302 involuntary commitment for mixed jeb. Chief Complaint "can we just get this over with? I'd tell you about this thing but I don't want you to think I'm crazy". Review of Systems Sleep Information Total Hours of Sleep: 5 Meal Information Percent Meal Consumed - Breakfast: 90 Percent Meal Consumed - Lunch: 100 Percent Meal Consumed - Dinner: 100 Subjective Subjective Patient was seen & assessed and interval progress reviewed with treatment team. Sleep improving as is irritability. Still requiring prn Haldol and Ativan. Paranoid re: releases for her daughter, told me she thought the forms were for placement somewhere. States she'd like to help a family who's child "get her back", reportedly by giving of her own soul or parts to "make her whole again" then shifted to a shampoo person someone's car about blood or organ donation. Alludes to some racing thoughts about the past. Says she can't stay here but can't verbalize a complaint and appears superficially pleasant in interactions with peers. Physical Exam Psychiatric Orientation: alert Apperance: appropriately dressed and appropriately groomed Eye Contact: + fair eye contact Motor Behavior: no abnormal motor movements Speech: normal rate/rhythm/volume of speech Affect: + labile affect Mood: + dysphoric mood Thought Process: + tangential thought process Thought Content: + paranoid Suicidal Thoughts: denies suicidal thoughts Homicidal Thoughts: denies homicidal thoughts Hallucinations: no auditory hallucinations and no visual hallucinations Cognition: language grossly intact; + attention not intact Estimated Intelligence: consistent with education level Insight: + poor insight Judgement: + poor judgement Vital Signs (Past 24 Hours) Last Vital Signs Temp 36.8 C 03/07/21 06:40 Pulse 96 H 03/07/21 06:41 Resp 16 03/07/21 06:40 BP 144/85 H 03/07/21 06:41 Results & Data ([facility]) Current Inpatient Medications Current Inpatient Medications: Current Inpatient Medications Acetaminophen (Acetaminophen 325 Mg Tab) 650 mg PO Q4H PRN PRN Reason: Headache or Minor Fever Stop: 04/04/21 15:20 Last Admin: 03/07/21 05:31 Dose: 650 mg Documented by: Al Hydrox/Mg Hydrox/Simethicone (Aluminum/Magnesium Susp 30 Ml Udc) 30 ml PO Q4H PRN PRN Reason: GI Upset Stop: 04/04/21 15:20 Last Admin: 03/05/21 16:09 Dose: 30 ml Documented by: Benztropine Mesylate (Benztropine Mesylate 1 Mg/Ml 2 Ml Amp) 1 mg IM Q6 PRN PRN Reason: muscle tight/thick tongue Stop: 04/04/21 15:25 Benztropine Mesylate (Benztropine Mesylate 1 Mg Tab) 1 mg PO Q6 PRN PRN Reason: muscle tight/thick tongue Stop: 04/04/21 15:25 Bismuth Subsalicylate (Bismuth Subsalicylate Liqd 236 Ml) 15 ml PO PRN PRN PRN Reason: Loose Stool Stop: 04/04/21 15:20 Haloperidol (Haloperidol 5 Mg Tab) 5 mg PO Q6 PRN PRN Reason: Anxiety/Agitation Stop: 04/04/21 15:25 Last Admin: 03/06/21 16:36 Dose: 5 mg Documented by: Haloperidol Lactate (Haloperidol Lactate 5 Mg/Ml 1 Ml Vial) 5 mg IM Q6 PRN PRN Reason: Agitation Stop: 04/04/21 15:25 Hydroxyzine HCl (Hydroxyzine Hcl 25 Mg Tab) 50 mg PO HSZ PRN PRN Reason: Insomnia Stop: 04/04/21 15:20 Hydroxyzine HCl (Hydroxyzine Hcl 25 Mg Tab) 25 mg PO Q4H PRN PRN Reason: Anxiety Stop: 04/04/21 15:20 Lamotrigine (Lamotrigine 25 Mg Tab) 25 mg PO QPM [facility] Stop: 04/05/21 20:59 Last Admin: 03/06/21 20:27 Dose: 25 mg Documented by: Lisinopril (Lisinopril 20 Mg Tab) 20 mg PO QAM [facility] Stop: 04/05/21 08:59 Last Admin: 03/07/21 08:10 Dose: 20 mg Documented by: Lorazepam (Lorazepam 1 Mg Tab) 1 mg PO TID [facility] Stop: 04/04/21 20:59 Last Admin: 03/07/21 08:10 Dose: 1 mg Documented by: Lorazepam (Lorazepam 1 Mg Tab) 1 mg PO Q6 PRN PRN Reason: Anxiety/Agitation Stop: 04/04/21 15:30 Last Admin: 03/06/21 08:57 Dose: 1 mg Documented by: Lorazepam (Lorazepam 2 Mg/Ml Vial (Im Use)) 2 mg IM Q6 PRN PRN Reason: Agitation Stop: 04/04/21 15:30 Magnesium Hydroxide (Magnesium Hydroxide Susp 30 Ml Udc) 30 ml PO DAILY PRN PRN Reason: Constipation Stop: 04/04/21 15:20 Last Admin: 03/06/21 14:35 Dose: 30 ml Documented by: Olanzapine (Olanzapine 5 Mg Tablet) 15 mg PO HS [facility] Stop: 04/06/21 21:59 Propranolol HCl (Propranolol Hcl 10 Mg Tab) 10 mg PO BID [facility] Stop: 04/06/21 20:59 Sertraline HCl (Sertraline Hcl 50 Mg Tablet) 50 mg PO DAILY [facility] Stop: 04/06/21 08:59 Last Admin: 03/07/21 08:10 Dose: 50 mg Documented by: Sodium Chloride (Sodium Chloride 0.65% Na Soln 45 Ml ([place])) 1 - 2 sprays NA PRN PRN PRN Reason: Nasal Dryness/Congestion Stop: 04/04/21 15:20 Zolpidem Tartrate (Zolpidem Tartrate 10 Mg Tab) 10 mg PO HS PRN PRN Reason: Sleep Stop: 04/04/21 15:28 Mental Health & Subst Abuse Tx Psychiatrist Name of Psychiatrist: [facility] Psychiatrist's Psychiatric Appointment Comment: [address] [id number] Therapist Name of Therapist: refuses Post Discharge Appointments Primary Care Physician Name Of Family Doctor: refuses Contact Information Discharge Discharge Address: [address] [place] [address] [address] [address] [id number]
[2021-03-07] MEDS: haloperidoL 5 MG TAB PO PRN (14:26)
[2021-03-07] MEDS: OLANZapine 5 MG TABLET PO SCH (20:41)
[2021-03-07] MEDS: lamoTRIgine 25 MG TAB PO SCH (20:42)
[2021-03-08] MEDS: LORazepam 1 MG TAB PO PRN ×2 (06:27→18:40)
[2021-03-08] MEDS: lisinopril 20 MG TAB PO SCH (08:30)
[2021-03-08] MEDS: PROPRANOLOL HCL 10 MG TAB PO SCH ×2 (08:30→20:06)
[2021-03-08] MEDS: LORazepam 1 MG TAB PO SCH ×3 (08:30→20:08)
[2021-03-08] MEDS: SERTRALINE HCL 50 MG TABLET PO SCH (08:31)
--- NOTE | 2021-03-08 10:37 | Psychiatric Progress Note ---
Date of Service March 08, 2021 Impression / Recommendations Impression 41 yo female with significant paranoia, insomnia, irritability, and even aggression necessitating 2 separate 302 since 02/27/21, seemingly triggered by use of stimulant medication but clearly underlying mood instability and family history of bipolar disorder. 03/08/21: significant improvement in past 24 hrs. (1) Bipolar 1 disorder with moderate jeb: 03/08/21: Zyprexa 20 mg qhs for ease of dosing and ongoing symptoms to decrease reliance on prns. Reviewed that Zyprexa can hopefully be titrated when therapeutic again on Lamictal to minimize weight gain and risk of TD. 03/07/21: titrate Zyprexa 15 mg po qhs, continue TID Ativan with prn, monitor for activation on Zoloft and rash with lamictal restart. 03/06/21: The patient was admitted to the [facility] ([facility] health unit) on q15 min checks (behavioral with suicide precautions) for safety. The patient will participate in group, recreational, and milieu therapies and will be offered additional individual and family sessions as clinically appropriate. The patient had some difficulty tolerating the interview but voiced understanding of side effect profile of her medications and risks/benefits. Reviewed that cholesterol and fasting blood sugar were obtained today for monitoring with Zyprexa and there are no abnormal motor movements at baseline. She will continue with Haldol and Ativan prns, no evidence of EPS at this time. Discussed need to retitrate Lamictal given risks of Arash's Griffin reaction and that Zoloft can add to mood instability. She reports taking Zoloft for years with no issues and reports she experiences discontinuation syndrome and fogginess if misses dose so agreed to restart at lower dose tomorrow. Inventory Assets Strengths: intelligent, family support, loves her dog Needs: outpatient therapy, increase insight into mood instability and recent behaviors Risk Factors Assessment : Yes Do You Have Access To A Gun?: No Mental Health Diagnoses: Yes Substance Use Disorders: No Previous Attempt: No Protective Factors Assessment Employed: Yes Supportive Family: Yes Interval History Identifying Information SERGEI DAVID is a 41-year-old F who currently lives in alone in the [place] area, has a history of mood disorder, and was admitted on 03/05/21 16:06 on a 302 involuntary commitment for mixed jeb. Chief Complaint "I just want to go home". Review of Systems Sleep Information Total Hours of Sleep: 7.75 Meal Information Percent Meal Consumed - Breakfast: 100 Percent Meal Consumed - Lunch: 75 Percent Meal Consumed - Dinner: 75 Subjective Subjective Patient was seen & assessed and interval progress reviewed with nursing and social work. She has been receiving prn Ativan and Haldol for non-specific paranoia (she is triggered by a male peer with psychosis who typically paces) and she is used to living alone and working remotely. Sleep continues to improve, did use Ambien last night as "this isn't home". She has been communicating directly with her daughter and mother. No longer paranoid re: either of them and able to tolerate a discussion of her manic behaviors that resulted in her [place] ED stay and care here. "Whatever you are giving me is working" and we again reviewed her current medications and that they will need monitored/benzo tapered on an outpatient basis. She reports not having any more stimulant medication and that "I'd never take that stuff again anyway" and talked about how she was aware of hypomania but continued to take "too much Adderall and Ritalin" anyway as liked feeling good/productive. She did sign CARMEN to arrange for family meeting. Physical Exam Psychiatric Orientation: alert Apperance: appropriately dressed and appropriately groomed Eye Contact: + fair eye contact Motor Behavior: no abnormal motor movements Speech: normal rate/rhythm/volume of speech Affect: + depressed affect (teaful that not being discharged) Mood: + anxious mood Thought Process: + concrete thought process Thought Content: not paranoid Suicidal Thoughts: denies suicidal thoughts Homicidal Thoughts: denies homicidal thoughts Hallucinations: no auditory hallucinations and no visual hallucinations Cognition: language grossly intact Estimated Intelligence: consistent with education level Insight: + limited insight Judgement: + limited judgement Vital Signs (Past 24 Hours) Last Vital Signs Temp 37.1 C 03/08/21 06:37 Pulse 102 H 03/08/21 06:38 Resp 16 03/08/21 06:37 BP 139/80 03/08/21 06:38 Pulse Ox 97 03/07/21 20:46 Results & Data ([facility]) Current Inpatient Medications Current Inpatient Medications: Current Inpatient Medications Acetaminophen (Acetaminophen 325 Mg Tab) 650 mg PO Q4H PRN PRN Reason: Headache or Minor Fever Stop: 04/04/21 15:20 Last Admin: 03/07/21 14:36 Dose: 650 mg Documented by: Al Hydrox/Mg Hydrox/Simethicone (Aluminum/Magnesium Susp 30 Ml Udc) 30 ml PO Q4H PRN PRN Reason: GI Upset Stop: 04/04/21 15:20 Last Admin: 03/05/21 16:09 Dose: 30 ml Documented by: Benztropine Mesylate (Benztropine Mesylate 1 Mg/Ml 2 Ml Amp) 1 mg IM Q6 PRN PRN Reason: muscle tight/thick tongue Stop: 04/04/21 15:25 Benztropine Mesylate (Benztropine Mesylate 1 Mg Tab) 1 mg PO Q6 PRN PRN Reason: muscle tight/thick tongue Stop: 04/04/21 15:25 Bismuth Subsalicylate (Bismuth Subsalicylate Liqd 236 Ml) 15 ml PO PRN PRN PRN Reason: Loose Stool Stop: 04/04/21 15:20 Haloperidol (Haloperidol 5 Mg Tab) 5 mg PO Q6 PRN PRN Reason: Anxiety/Agitation Stop: 04/04/21 15:25 Last Admin: 03/07/21 14:26 Dose: 5 mg Documented by: Haloperidol Lactate (Haloperidol Lactate 5 Mg/Ml 1 Ml Vial) 5 mg IM Q6 PRN PRN Reason: Agitation Stop: 04/04/21 15:25 Hydroxyzine HCl (Hydroxyzine Hcl 25 Mg Tab) 50 mg PO HSZ PRN PRN Reason: Insomnia Stop: 04/04/21 15:20 Hydroxyzine HCl (Hydroxyzine Hcl 25 Mg Tab) 25 mg PO Q4H PRN PRN Reason: Anxiety Stop: 04/04/21 15:20 Lamotrigine (Lamotrigine 25 Mg Tab) 25 mg PO QPM [facility] Stop: 04/05/21 20:59 Last Admin: 03/07/21 20:42 Dose: 25 mg Documented by: Lisinopril (Lisinopril 20 Mg Tab) 20 mg PO QAM [facility] Stop: 04/05/21 08:59 Last Admin: 03/08/21 08:30 Dose: 20 mg Documented by: Lorazepam (Lorazepam 1 Mg Tab) 1 mg PO TID [facility] Stop: 04/04/21 20:59 Last Admin: 03/08/21 08:30 Dose: 1 mg Documented by: Lorazepam (Lorazepam 1 Mg Tab) 1 mg PO Q6 PRN PRN Reason: Anxiety/Agitation Stop: 04/04/21 15:30 Last Admin: 03/08/21 06:27 Dose: 1 mg Documented by: Lorazepam (Lorazepam 2 Mg/Ml Vial (Im Use)) 2 mg IM Q6 PRN PRN Reason: Agitation Stop: 04/04/21 15:30 Magnesium Hydroxide (Magnesium Hydroxide Susp 30 Ml Udc) 30 ml PO DAILY PRN PRN Reason: Constipation Stop: 04/04/21 15:20 Last Admin: 03/06/21 14:35 Dose: 30 ml Documented by: Olanzapine (Olanzapine 5 Mg Tablet) 15 mg PO HS [facility] Stop: 04/06/21 21:59 Last Admin: 03/07/21 20:41 Dose: 15 mg Documented by: Propranolol HCl (Propranolol Hcl 10 Mg Tab) 10 mg PO BID [facility] Stop: 04/06/21 20:59 Last Admin: 03/08/21 08:30 Dose: 10 mg Documented by: Sertraline HCl (Sertraline Hcl 50 Mg Tablet) 50 mg PO DAILY [facility] Stop: 04/06/21 08:59 Last Admin: 03/08/21 08:31 Dose: 50 mg Documented by: Sodium Chloride (Sodium Chloride 0.65% Na Soln 45 Ml ([place])) 1 - 2 sprays NA PRN PRN PRN Reason: Nasal Dryness/Congestion Stop: 04/04/21 15:20 Zolpidem Tartrate (Zolpidem Tartrate 10 Mg Tab) 10 mg PO HS PRN PRN Reason: Sleep Stop: 04/04/21 15:28 Last Admin: 03/07/21 20:40 Dose: 10 mg Documented by: Mental Health & Subst Abuse Tx Psychiatrist Name of Psychiatrist: [facility] Psychiatrist's Psychiatric Appointment Comment: [address] [id number] Therapist Name of Therapist: refuses Post Discharge Appointments Primary Care Physician Name Of Family Doctor: refuses Contact Information Discharge Discharge Address: [address] [place] [address] [facility] [address] [id number]
[2021-03-08] MEDS: lamoTRIgine 25 MG TAB PO SCH (20:06)
[2021-03-08] MEDS: OLANZapine 5 MG TABLET PO SCH (20:07)
[2021-03-09] MEDS: ACETAMINOPHEN 325 MG TAB PO PRN ×2 (05:17→09:17)
[2021-03-09] MEDS: LORazepam 1 MG TAB PO SCH ×2 (08:17→13:15)
[2021-03-09] MEDS: SERTRALINE HCL 50 MG TABLET PO SCH (08:17)
[2021-03-09] MEDS: PROPRANOLOL HCL 10 MG TAB PO SCH (08:17)
[2021-03-09] MEDS: lisinopril 20 MG TAB PO SCH (08:18)
[2021-03-09] MEDS: MAGNESIUM HYDROXIDE SUSP 30 ML UDC PO PRN (10:02)
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
== END 2021-03-09 13:29 | disposition home or self-care (01) | DRG 885 ==
LOC: 3S 16:06